=== PATIENT | female | born 1970 | race Caucasian/White ===

== ENCOUNTER → 2017-03-02 13:55 | Outpatient (CLI) | payer BC, OTHER, SELFPAY ==
--- NOTE | 2017-03-02 14:20 | MM_ITS ---
MM Dig screening mamm BI w/CAD CAD Screening ORDERING PHYSICIAN : Darnell Alexander MD PATIENT AGE: 46 years GENDER: Female COMPARISON: Previous mammograms: August 2015, February 2014, January 2013 INDICATION: 46-year-old. No hormones no new complaints noncontributory family history. TECHNIQUE: Standard CC and MLO images were obtained. R2 CAD reviewed. FINDINGS: . Generalized fatty replacement. With Low-density breast which facilitates mammography.. No dominant mass nor suspicious calcifications nor architectural distortion either breast . CAD computer review highlights no areas of concern either Bilateral follow-up one year adequate IMPRESSION: Negative stable bilateral mammogram. Low-density breast. Follow-up one year recommended BI-RADS Category: 2 Benign Finding(s) RECOMMENDED FOLLOW-UP: 1YR - 1 YEAR FOLLOW-UP (A letter has been sent to the patient regarding results of the study.)
[2017-03-02 15:53] LABS: Free T4 (Free Thyroxine) 0.94 ng/dl (0.76-1.46); Thyroid Stimulating Hormone 0.31 uIU/ml (0.358-3.740)
[2017-03-03 12:16] LABS: Triiodothyronine (T3) Free 3.1 pg/mL (2.0-4.4)
== END ==
PROVIDERS: Otolaryngology; Family Provider Nurse Practitioner Family; PCP Nurse Practitioner Family; Visit Provider Nurse Practitioner Obstetrics & Gynecology
DX: Z12.31 Encounter for screening mammogram for malignant neoplasm of breast (principal); E04.1 Nontoxic single thyroid nodule
CPT/HCPCS: 36415; 77067; 84439; 84443; 84481

== ENCOUNTER → 2017-03-09 15:11 | Outpatient (CLI) | payer BC, OTHER, SELFPAY ==
--- NOTE | 2017-03-09 15:15 | US_ITS ---
US thyroid HISTORY: ITS.REASON: THYROID GOITER ORDERING PHYSICIAN: Melania Rowell MD PATIENT AGE: 46 years COMPARISON: 03/12/2014 FINDINGS: Right lobe: 4.1 x 1.1 x 1.6 cm. 5 mm hypoechoic nodule mid aspect of the right lobe with some increased echogenicity centrally unchanged. 5 mm hypoechoic nodule inferiorly unchanged. Left lobe: 3.6 x 0.8 x 1.5 cm. 4 mm hypoechoic nodule upper pole unchanged. Isthmus: Unremarkable IMPRESSION: Overall no change bilateral hypoechoic thyroid nodules with low index of suspicion for malignancy
== END ==
PROVIDERS: Family Provider Nurse Practitioner Family; PCP Nurse Practitioner Family; Visit Provider Otolaryngology
DX: E04.9 Nontoxic goiter, unspecified (principal)
CPT/HCPCS: 76536

== ENCOUNTER → 2017-09-16 10:16 | Outpatient (CLI) | payer BC, OTHER, SELFPAY ==
--- NOTE | 2017-09-16 10:18 | US_ITS ---
US thyroid HISTORY: Enlarged thyroid gland ITS.REASON: thyroid disease ORDERING PHYSICIAN: Lorelei Gar PATIENT AGE: 47 years Comparison: 03/09/2017 FINDINGS: The right lobe is 3.8 x 1.0 x 2.4 cm. There is a 1.1 x 0.7 cm cystic nodule in the mid to lower pole on the right. Small hyperechoic focus is noted within this lesion. Lesion appears slightly larger and may actually consisted of 2 adjacent cysts were present before there was only one. There is some mural nodularity of the inferior cyst. Would consider fine-needle aspiration due to this interval change. The left lobe is 3.3 x 0.8 x 1.8 cm. There is a 4 mm cyst in the upper pole unchanged. A small cyst is present in the isthmus at 4 x 2 mm IMPRESSION: Enlarging and or new cystic lesion in the mid to lower pole the right lobe of the thyroid gland with a mural nodule. Suggest findings of aspiration with sonographic guidance for further evaluation
== END ==
PROVIDERS: Family Provider Nurse Practitioner Family; PCP Nurse Practitioner Family; Visit Provider Nurse Practitioner Family
DX: E04.9 Nontoxic goiter, unspecified (principal); E07.9 Disorder of thyroid, unspecified
CPT/HCPCS: 76536

== ENCOUNTER → 2017-09-20 09:15 | Outpatient (POV) | payer OTHER, SELFPAY | PROVIDERS: Family Provider Nurse Practitioner Family; PCP Nurse Practitioner Family; Visit Provider Otolaryngology | DX: Z00.00 Encounter for general adult medical examination without abnormal findings (principal) ==

== ENCOUNTER → 2017-09-29 09:33 | Outpatient (CLI) | payer OTHER, SELFPAY ==
--- NOTE | 2017-09-29 09:40 | US_ITS ---
FNA w guidance, US thyroid HISTORY: Complex right-sided thyroid nodule. Cystic lesion with a mural nodule ITS.REASON: THYROID NODULE ORDERING PHYSICIAN: Melania Rowell MD PATIENT AGE: 47 years COMPARISON: 09/16/2017 TECHNIQUE: Following obtaining informed consent, using aseptic technique and local anesthesia with buffered lidocaine, fine-needle aspiration was performed of the nodule of interest using sonographic guidance. 3 passes were made into the nodule with a 25-gauge needle. Specimen was given to cytology. Specifically, the FNA was directed toward the mural nodule of the cystic lesion. The patient tolerated the procedure well without evidence of immediate complications and left the ultrasound suite in stable condition. CYTOLOGY:Negative for malignancy. Abundant colloid compatible with colloid cyst IMPRESSION: Successful sonographic guided fine-needle aspiration of the right thyroid nodule showing benign findings
== END ==
PROVIDERS: Family Provider Nurse Practitioner Family; PCP Nurse Practitioner Family; Visit Provider Otolaryngology
DX: E04.9 Nontoxic goiter, unspecified (principal)
CPT/HCPCS: 10022; 76536

== ENCOUNTER → 2018-04-04 09:45 | Outpatient (CLI) | payer OTHER, SELFPAY ==
[2018-04-04 20:08] LABS: Thyroid Stimulating Hormone 1.94 uIU/ml (0.358-3.740)
[2018-04-05 15:25] LABS: Triiodothyronine (T3) Total 110 ng/dL (71-180)
== END ==
PROVIDERS: PCP Nurse Practitioner Family; Visit Provider Otolaryngology
DX: E04.9 Nontoxic goiter, unspecified (principal); E03.9 Hypothyroidism, unspecified
CPT/HCPCS: 36415; 84436; 84443; 84480

== ENCOUNTER → 2019-01-19 08:25 | Outpatient (CLI) | payer OTHER, SELFPAY ==
[2019-01-19 13:35] LABS: Basophils % 0.7 % (0.1-2.0); Eosinophils # 0.3 K/mm3 (0.0-0.4); Eosinophils % 4.4 % (0.1-12.0); Hematocrit 38.5 % (37.0-47.0); Hemoglobin 12.8 g/dL (12.2-16.2); Lymphocytes # 1.4 K/mm3 (0.7-4.5); Lymphocytes % 23.5 % (10-50); Mean Corpuscular HGB Conc 33.2 g/dL (31.8-35.4); Mean Corpuscular Hemoglobin 30.6 pg (27.0-31.2); Mean Corpuscular Volume 92.3 fl (81-99); Mean Platelet Volume 8.1 fl (7.4-10.4); Monocytes # 0.3 K/mm3 (0.1-1.0); Monocytes % 5.6 % (1.7-9.3); Neutrophils # 3.8 K/mm3 (1.8-7.8); Neutrophils % 65.8 % (37.0-80.0); Platelet Count 375 K/mm3 (142-424); Red Blood Count 4.17 M/mm3 (4.20-5.40); Red Cell Distribution Width 13.3 % (11.5-17.5); White Blood Count 5.8 K/mm3 (4.8-10.8)
[2019-01-19 14:02] LABS: Alanine Aminotransferase 15 U/L (12-78); Albumin Level 3.3 gm/dL (3.4-5.0); Albumin/Globulin Ratio 1.1 (1.1-1.8); Alkaline Phosphatase 80 U/L (46-116); Anion Gap 12.5 mEq/L (5-15); Aspartate Amino Transferase 11 U/L (15-37); Bilirubin,Total 0.3 mg/dL (0.2-1.0); Blood Urea Nitrogen 17 mg/dL (7-18); Calcium 8.7 mg/dL (8.5-10.1); Carbon Dioxide 27 mmol/L (21.0-32.0); Chloride 106 mmol/L (98-107); Chol/HDL Ratio 4.6 (1-3.5); Cholesterol 211 mg/dL (140-200); Creatinine,Serum 0.73 mg/dL (0.55-1.02); Estimated Glomerular Filt Rate 85 ml/min (>60); GFR (African American) 103 ML/MIN (>60); Globulin 2.9 gm/dl (1.3-3.2); Glucose 91 mg/dL (74-106); HDL Cholesterol 46 mg/dL (29-89); LDL Cholesterol 136 mg/dL (0-130); Potassium 3.5 mmoL/L (3.5-5.1); Sodium 142 mmol/L (136-145); Total Protein,Serum 6.2 gm/dL (6.4-8.2); Triglycerides 144 mg/dL (30-200); VLDL Cholesterol 29 mg/dL (0-40)
== END ==
PROVIDERS: PCP Nurse Practitioner Family; Visit Provider Nurse Practitioner Family
DX: R53.83 Other fatigue (principal); I10 Essential (primary) hypertension
CPT/HCPCS: 36415; 80053; 80061; 84443; 85025

== ENCOUNTER → 2019-01-30 10:35 | Outpatient (CLI) | payer OTHER, SELFPAY ==
--- NOTE | 2019-01-30 10:38 | MM_ITS ---
PROCEDURE: MM DIG SCREENING MAMM BI W/CAD CLINICAL INDICATION: SCREENING There is no personal or family history of breast cancer. COMPARISON: [facility] DIG MAMM-SCREEN LUCILA from 03/01/2014 [facility] DIG MAMM-SCREEN LUCILA from 08/25/2015 [facility] MM Dig screening mamm BI w/CAD from 03/02/2017 TECHNIQUE: Standard CC and MLO images were obtained. R2 CAD reviewed. FINDINGS: The breasts are composed almost entirely of fat with minimal scattered fibroglandular densities in each breast. There is no suspicious lesion in either breast and no suspicious microcalcifications. There are few benign-appearing microcalcifications in each breast. There are fatty replaced nodes in both axilla. IMPRESSION: Fatty type breast parenchyma with no suspicious lesions seen BI-RAD Category: 2 Benign Finding(s) FOLLOW-UP: 1YR 1 Year Follow-up (A letter has been sent to the patient regarding results of the study.) Dictated by: Dr. Tobin Head MD 01/31/2019 20:[address] Tobin Head MD in [place] 01/31/2019 20:38
== END ==
PROVIDERS: PCP Nurse Practitioner Family; Visit Provider Nurse Practitioner Family
DX: Z12.31 Encounter for screening mammogram for malignant neoplasm of breast (principal)
CPT/HCPCS: 77067

== ENCOUNTER → 2019-08-08 08:06 | Outpatient (CLI) | payer OTHER, SELFPAY ==
[2019-08-08 08:52] LABS: Basophils % 0.8 % (0.1-2.0); Eosinophils # 0.1 K/mm3 (0.0-0.4); Eosinophils % 2.9 % (0.1-12.0); Hematocrit 39.8 % (37.0-47.0); Hemoglobin 13.3 g/dL (12.2-16.2); Lymphocytes # 1.7 K/mm3 (0.7-4.5); Lymphocytes % 35.1 % (10-50); Mean Corpuscular HGB Conc 33.4 g/dL (31.8-35.4); Mean Corpuscular Hemoglobin 30.6 pg (27.0-31.2); Mean Corpuscular Volume 91.5 fl (81-99); Mean Platelet Volume 7.2 fl (7.4-10.4); Monocytes # 0.2 K/mm3 (0.1-1.0); Neutrophils # 2.7 K/mm3 (1.8-7.8); Neutrophils % 56.3 % (37.0-80.0); Platelet Count 301 K/mm3 (142-424); Red Blood Count 4.35 M/mm3 (4.20-5.40); Red Cell Distribution Width 13.9 % (11.5-17.5); White Blood Count 4.8 K/mm3 (4.8-10.8)
[2019-08-08 09:17] LABS: Alanine Aminotransferase 14 U/L (12-78); Albumin/Globulin Ratio 1.4 (1.1-1.8); Alkaline Phosphatase 91 U/L (38-126); Anion Gap 8.7 mEq/L (5-15); Aspartate Amino Transferase 21 U/L (14-36); Bilirubin,Total 0.5 mg/dl (0.2-1.3); Blood Urea Nitrogen 18 mg/dl (7-17); Calcium 9.5 mg/dl (8.4-10.2); Carbon Dioxide 28 mmol/L (22.0-30.0); Chloride 103 mmol/L (98-107); Chol/HDL Ratio 3.4 (1-3.5); Cholesterol 210 mg/dl (140-200); Estimated Glomerular Filt Rate 77 ml/min (>60); GFR (African American) 93 ML/MIN (>60); Globulin 2.9 g/dL (1.3-3.2); Glucose 109 mg/dl (74-100); HDL Cholesterol 61 mg/dl (40-60); Potassium 3.7 mmoL/L (3.5-5.1); Sodium 136 mmol/L (136-145); Total Protein,Serum 6.9 g/dl (6.3-8.2); Triglycerides 131 mg/dl (30-150); VLDL Cholesterol 26 mg/dL (0-40)
[2019-08-08 09:28] LABS: Direct LDL Cholesterol 115.29 mg/dL (100-129)
[2019-08-08 09:35] LABS: 25-OH Vitamin D, Total 31.6 ng/mL (30-100)
[2019-08-08 09:36] LABS: T4 (Thyroxine) 8.9 ug/dl (5.53-11.0)
[2019-08-08 09:49] LABS: Thyroid Stimulating Hormone 4.09 uIU/mL (0.465-4.68)
== END ==
PROVIDERS: Visit Provider Nurse Practitioner Family
DX: E07.9 Disorder of thyroid, unspecified (principal); Z79.899 Other long term (current) drug therapy
CPT/HCPCS: 36415; 80053; 80061; 82306; 84436; 84443; 85025

== ENCOUNTER 2020-01-20 14:43 | Emergency (ER) | payer OTHER, SELFPAY ==
[2020-01-20 14:50] VITALS: BP 133/83; PULSE 79; RESP 20; TEMP 36.3; O2SAT 99; BMI 35.2
--- NOTE | 2020-01-20 15:47 | HMH.EDUTC ---
[facility] Clinical Impression: Otitis media Qualifiers: Otitis media type: suppurative Chronicity: acute Laterality: right Recurrence: non-recurrent Spontaneous tympanic membrane rupture: without spontaneous rupture Qualified Code(s): H66.001 - Acute suppurative otitis media without spontaneous rupture of ear drum, right ear Disposition: Home, Self-Care Condition on Discharge: Good Instructions: Middle Ear Infection Additional Instructions: Start antibiotic as soon as possible and be sure to take as ordered for full length of time even though he should start feeling better in 24-48 hours. Tylenol or Motrin as needed for pain or fever Encourage fluids, water, Gatorade, Powerade, Pedialyte if /toddler/child Warm compresses often helps when placed over ear Return immediately for new or worsening symptoms no noticeable improvement in 48-72 hours and in 10-14 days to ensure the ears are return to baseline. Follow-up with primary care Prescriptions: cephALEXin [Keflex 500mg Cap] 500 mg PO BID 10 Days #20 cap Transmission Status: Pending to [id number] predniSONE [Prednisone 20mg Tab] 20 mg PO BID #10 tab Transmission Status: Pending to [id number] Referrals: Damir Bowling APRN [Primary Care Provider] - Time of Disposition: 15:52 Medical Decision Making - Raji Inquiry Pt receiving controlled substance: No Vital Signs: 01/20/20 14:50 Temperature 97.3 F L Temperature Source Oral Pulse Rate [Right Brachial] 79 Respiratory Rate 20 Blood Pressure [Right Arm] 133/83 Blood Pressure Mean [Right Arm] 99 Blood Pressure Source [Right Arm] Automatic Cuff Blood Pressure Position [Right Arm] Sitting 02 Sat by Pulse Oximetry 99 Oxygen Delivery Method Room Air [facility] [place] [facility] [place] - General Chief complaint: [facility] Stated complaint: right ear pain Time Seen by Provider: 01/20/20 15:47 Mode of Arrival: Ambulatory Source of Information: Patient Limitations: No Limitations Description of Symptoms (Recalled from Triage Doc. by RN): PATIENT C/O RIGHT EAR PAIN HEENT Symptoms (Recalled from RN notes): No Resp Symptoms (Recalled from RN notes): No Skin Symptoms (Recalled from RN notes): No MS Symptoms (Recalled from RN notes): No Functional Status (Recalled from RN notes): WNL - History of Present Illness Provider Complaint: 49 yr old female presnets for rt ear pain - Related Data Previous Rx's Medication Instructions Recorded fluticasone propionate 50 See Rx Instructions .ROUTE 09/17/19 mcg/actuation nasal .COMPLEX #10 milliliter spray,suspension alprazolam 0.25 mg tablet 0.25 mg PO BID PRN #30 tab 10/04/19 cephalexin 500 mg capsule 500 mg PO Q12H 10 Days #20 cap 10/12/19 prednisone 20 mg tablet 20 mg PO BID #10 tab 10/12/19 acyclovir 400 mg tablet 400 mg PO QID #30 tab 11/03/19 cetirizine 10 mg tablet See Rx Instructions .ROUTE 12/14/19 .COMPLEX #90 tab lisinopril 20 See Rx Instructions .ROUTE 12/14/19 mg-hydrochlorothiazide 12.5 mg .COMPLEX #90 tab tablet pravastatin 20 mg tablet 20 mg PO DAILY #90 tab 12/28/19 pantoprazole 40 mg tablet,delayed See Rx Instructions .ROUTE 12/31/19 release .COMPLEX #90 each fluconazole 150 mg tablet See Rx Instructions .ROUTE 01/02/20 .COMPLEX #1 tablet levothyroxine 25 mcg tablet See Rx Instructions .ROUTE 01/07/20 .COMPLEX #90 tab cephALEXin [Keflex 500mg Cap] 500 mg PO BID 10 Days #20 cap 01/20/20 predniSONE [Prednisone 20mg 20 mg PO BID #10 tab 01/20/20 Tab] Allergies Allergy/AdvReac Type Severity Reaction Status Date / Time adhesive [ADHESIVE] Allergy Unknown Verified 10/04/19 10:14 cyclobenzaprine Allergy Verified 10/04/19 10:14 [From Flexeril] - Worker's Comp Is this a Worker's Comp case?: No [facility] History - Hepatitis A Screen Drug use history?: No High risk sexual behaviors?: No History of sexually transmitted infection?: No Currently employed?: No Childcare worker?: No Do you have in
[2020-01-20 15:55] VITALS: BP 133/83; PULSE 79; RESP 20; TEMP 36.3; O2SAT 99
== END 2020-01-20 16:00 | disposition home or self-care (01) ==
PROVIDERS: Emergency Provider Nurse Practitioner Family; PCP Nurse Practitioner Family
DX: H66.001 Acute suppurative otitis media without spontaneous rupture of ear drum, right ear (principal); E78.5 Hyperlipidemia, unspecified; I10 Essential (primary) hypertension; K21.9 Gastro-esophageal reflux disease without esophagitis; F41.9 Anxiety disorder, unspecified; Z91.048 Other nonmedicinal substance allergy status; Z79.899 Other long term (current) drug therapy
CPT/HCPCS: 99201

== ENCOUNTER → 2020-02-04 07:47 | Outpatient (CLI) | payer OTHER, SELFPAY ==
--- NOTE | 2020-02-04 07:48 | MM_ITS ---
PROCEDURE: MM DIG SCREENING MAMM BI W/CAD Digital Breast Tomosynthesis Included CLINICAL INDICATION: screening There is no personal or family history of breast cancer. COMPARISON: MG [facility] DIG MAMM-SCREEN LUCILA from 08/25/2015 [facility] MM Dig screening mamm BI w/CAD from 03/02/2017 MG MM DIG SCREENING MAMM BI W/CAD from 01/30/2019 TECHNIQUE: Standard CC and MLO images and 3D Tomosynthesis was obtained. R2 CAD reviewed. FINDINGS: The breasts are composed primarily of with minimal scattered fibroglandular densities in each breast. There few scattered benign-appearing microcalcifications in each breast. There are fatty replaced nodes in both axilla. There is no suspicious lesion in either breast and no suspicious microcalcifications. IMPRESSION: Fatty type breast parenchyma with no suspicious lesions seen BI-RAD Category: 2 Benign Finding(s) FOLLOW-UP: 1YR 1 Year Follow-up (A letter has been sent to the patient regarding results of the study.) Dictated by: Dr. Tobin Head MD 02/06/2020 09:04 Dr. Tobin Head MD in [place] 02/06/2020 09:04
== END ==
PROVIDERS: PCP Nurse Practitioner Family; Visit Provider Nurse Practitioner Family
DX: Z12.31 Encounter for screening mammogram for malignant neoplasm of breast (principal)
CPT/HCPCS: 77063; 77067

== ENCOUNTER 2020-02-11 18:53 | Emergency (ER) | payer OTHER, SELFPAY ==
--- NOTE | 2020-02-11 18:50 | ECG_ITS ---
APPROVED REPORT Exam: Resting ECG HR:87 bpm ECG Measurements Heart Rate 87 AXES TX 132 P 65 QRSd 86 QRS 12 QT 380 T 52 QTc 457 Conclusion Normal sinus rhythm Low voltage QRS Borderline ECG Electronically signed by : Ezekiel Kaiser, 02/12/2020 19:54:56
[2020-02-11 18:53] VITALS: BP 133/90; PULSE 79; RESP 16; TEMP 36.8; O2SAT 98; BMI 38.2
--- NOTE | 2020-02-11 19:07 | XR_ITS ---
PROCEDURE: XR CHEST 2V CLINICAL HISTORY: stomach soreness COMPARISON: CR CXR1 CHEST-PORTABLE from 04/28/2012 FINDINGS: The cardiomediastinal silhouette and pulmonary vascularity are within normal limits. There is mild persistent elevation right hemidiaphragm unchanged from the previous chest film 04/28/2012. The lungs are clear without infiltrates, suspicious nodules, or pleural effusions. No acute bony abnormalities. IMPRESSION: No acute findings. Dictated by: Dr. Tobin Head MD 02/12/2020 10:45 Dr. Tobin Head MD in [place] 02/12/2020 10:45
--- NOTE | 2020-02-11 19:13 | CT_ITS ---
Procedure: CT ABDOMEN PELVIS W CON Referring Doctor: Christian Martinez Patient Age:49Y CLINICAL INDICATION: diverticulitis? Abdominal pain. Diarrhea. History of diverticulosis. COMPARISON: CR XR CHEST 2V from 02/11/2020 TECHNIQUE: 75 cc Isovue 370 Axial images obtained with sagittal and coronal reformats. All CT scans at the facility use one or more dose reduction, viz: automated exposure control, ma/kV adjustment per patient size (including targeted exams where dose is matched to indication, i.e. head), or iterative reconstruction technique. FINDINGS: Lower thorax: Lung bases clear, small calcified granuloma anterior RML but minimal atelectasis posterior right lung base but ABDOMEN: Liver: No significant masses. No biliary dilatation. Tiny 1 cm cyst right lobe. Gallbladder: Distended gallbladder measuring to 9.5 cm in length small noncalcified gallstone versus polyp along anterior wall, 7.5 mm size but axial image 46. The common duct appears normal caliber-not dilated. Pancreas: No masses or peripancreatic fluid collections. Spleen: unremarkable Adrenals: unremarkable Kidneys/ureters: unremarkable but normal enhancement but no obstruction or calculi. Uterus remains.. Of left ovary is more evident the right and contains a small 16 generous left fallopian tube. Mm cyst Bladder: Nondistended. No obvious stones or masses. Appendix: Unremarkable. No distention or periappendiceal phlegmonous change. -GI tract --------- Stomach: Mild diffuse wall thickening appearance the most likely reflects lack of distension Small bowel: Slight increased fluid throughout small bowel but no small bowel dilatation or obstruction. Terminal ileum appears normal. Appendix is difficult to visualize but what I believe is appendix is very thin with no evidence of appendicitis . LARGE BOWEL. Diverticulosis most extensive at sigmoid colon but with numerous diverticuli throughout the left colon at and extending into the transverse colon as well. The of there are few diverticula which demonstrate upper normal wall thickness but however see no no definitive acute diverticulitis but there is some questionable slight wispy changes about the proximal most sigmoid colon but not convincing for diverticulitis. Peritoneum: No abnormal fluid collections. No obvious inflammatory changes. No free air. A small fat containing umbilical hernia the Lymph nodes: No enlarged lymph nodes apparent. Vasculature: No the unremarkable Bones: There are 11 full ribs with the 12th rib rudimentary during the transitional vertebra at thoracolumbar junction. Using this numbering of vertebral bodies of note prominent 8 mm, prominent grade 2 listhesis of L4 on L5, with marked degenerative disc space narrowing and severe facet arthropathy/hypertrophy a contributing. No pars defect identified. These features combine to yield prominent central canal stenosis and prominent bilateral recess/foraminal stenosis at L4/5 level. There is also foraminal stenosis bilaterally at L5 most evident to the right, but the IMPRESSION: 1.. Gallbladder is dilated/distended, with an adherent stone or polyp along the anterior wall.. Recommend gallbladder ultrasound to further evaluate Common duct normal diameter; no intrahepatic biliary ductal dilatation. 2. Colonic diverticulosis most pronounced throughout the sigmoid and left colon.. No definitive acute diverticulitis (Several diverticuli with upper normal wall thickness as well question mild haziness in pericolic fat in some areas, but overall no convincing/definitive acute diverticulitis. If symptoms at left lower quadrant should progress consider follow-up study). Also no liquid stool evident cur
[2020-02-11 19:20] LABS: Basophils # 0.1 K/mm3 (0-0.2); Basophils % 0.4 % (0.1-2.0); Chloride 103 mmol/L (98-107); Eosinophils # 0.2 K/mm3 (0.0-0.4); Eosinophils % 1.2 % (0.1-12.0); Hematocrit 42.8 % (37.0-47.0); Hemoglobin 14.2 g/dL (12.2-16.2); Lymphocytes # 1.8 K/mm3 (0.7-4.5); Lymphocytes % 14.5 % (10-50); Mean Corpuscular HGB Conc 33.1 g/dL (31.8-35.4); Mean Corpuscular Volume 90.7 fl (81-99); Mean Platelet Volume 7.1 fl (7.4-10.4); Monocytes # 0.7 K/mm3 (0.1-1.0); Monocytes % 5.5 % (1.7-9.3); Neutrophils # 9.7 K/mm3 (1.8-7.8); Neutrophils % 78.3 % (37.0-80.0); Platelet Count 325 K/mm3 (142-424); Red Blood Count 4.72 M/mm3 (4.20-5.40); Red Cell Distribution Width 14.6 % (11.5-17.5); White Blood Count 12.4 K/mm3 (4.8-10.8)
[2020-02-11 19:21] LABS: Potassium 3.5 mmoL/L (3.5-5.1); Sodium 137 mmol/L (136-145)
[2020-02-11 19:23] LABS: Alanine Aminotransferase 15 U/L (12-78); Amylase 47 U/L (30-110); Anion Gap 9.5 mEq/L (5-15); Aspartate Amino Transferase 21 U/L (14-36); Bilirubin,Total 0.4 mg/dl (0.2-1.3); Blood Urea Nitrogen 16 mg/dl (7-17); Carbon Dioxide 28 mmol/L (22.0-30.0); Creatinine Clearance Estimated 161 mL/min (50-200); Estimated Glomerular Filt Rate 107 ml/min (>60); GFR (African American) 129 ML/MIN (>60)
[2020-02-11 19:24] LABS: Albumin Level 4.2 g/dl (3.5-5.0); Albumin/Globulin Ratio 1.3 (1.1-1.8); Alkaline Phosphatase 104 U/L (38-126); Calcium 9.6 mg/dl (8.4-10.2); Globulin 3.3 g/dL (1.3-3.2); Glucose 111 mg/dl (74-100); Lipase 47 U/L (23-300); Total Protein,Serum 7.5 g/dl (6.3-8.2)
[2020-02-11 19:30] VITALS: BP 129/84; PULSE 72; RESP 17; O2SAT 99
--- NOTE | 2020-02-11 19:35 | PC.NURSE ---
pt to RAD
[2020-02-11 19:38] LABS: Troponin I < 0.01 ng/ml (0.00-0.034)
--- NOTE | 2020-02-11 19:48 | PC.NURSE ---
pt back form RAD
[2020-02-11 20:00] VITALS: BP 121/83; PULSE 67; RESP 16; O2SAT 97
--- NOTE | 2020-02-11 20:20 | PC.NURSE ---
speaking with Dr. Lee
[2020-02-11 20:24] LABS: Microscopic, Urine URINE MICROSCOPIC (MICROSCOPIC)
--- NOTE | 2020-02-11 20:29 | HMH.EDABDPAI ---
ED Disposition Clinical Impression: Cholelithiases Qualifiers: Cholelithiasis location: gallbladder Cholecystitis presence: without cholecystitis Biliary obstruction: without biliary obstruction Qualified Code(s): K80.20 - Calculus of gallbladder without cholecystitis without obstruction Disposition: Home, Self-Care Condition on Discharge: Good Instructions: DI for Acute Abdominal Pain Additional Instructions: Call Dr. Do with general surgery tomorrow morning at his clinic to schedule an appointment for follow-up. Return to the ED for any new or worsening symptoms including persistent vomiting or fever. Referrals: Bolivar Isaac MD [Primary Care Provider] - Time of Disposition: 20:46 - Critical Care Critical Care Time: No Attestation: On 02/11/20, the high probability of a clinically significant, sudden or life threatening deterioration of the following system(s) required my full and direct attention, intervention and personal management. The time I documented below is in addition to time spent performing reported procedures but includes the following listed in this critical care notation. Medical Decision Making - Medical Records Medical records reviewed: Yes: I reviewed the patient's medical records. - Raji Inquiry Pt receiving controlled substance: No Vital Signs: 02/11/20 18:53 Temperature 98.2 F Temperature Source Oral Pulse Rate [Right] 79 Respiratory Rate 16 Blood Pressure [Right Arm] 133/90 Blood Pressure Mean [Right Arm] 104 Blood Pressure Source [Right Arm] Automatic Cuff Blood Pressure Position [Right Arm] Sitting 02 Sat by Pulse Oximetry 98 Oxygen Delivery Method Room Air - Lab Data Lab Results 02/11/20 18:55: WBC 12.4 H, RBC 4.72, Hgb 14.2, Hct 42.8, MCV 90.7, MCH 30.0, MCHC 33.1, RDW 14.6, Plt Count 325, MPV 7.1 L, Neut % (Auto) 78.3, Lymph % (Auto) 14.5, [place] % (Auto) 5.5, Eos % (Auto) 1.2, Baso % (Auto) 0.4, Neut # (Auto) 9.7 H, Lymph # (Auto) 1.8, [place] # (Auto) 0.7, Eos # (Auto) 0.2, Baso # (Auto) 0.1 02/11/20 18:55: Sodium 137, Potassium 3.5, Chloride 103, Carbon Dioxide 28, Anion Gap 9.5, BUN 16, Creatinine 0.60, Estimated Creat Clear 161, Estimated GFR 107, Est GFR ( Amer) 129, Glucose 111 H, Calcium 9.6, Total Bilirubin 0.4, AST 21, ALT 15, Alkaline Phosphatase 104, Troponin I < 0.01, Total Protein 7.5, Albumin 4.2, Globulin 3.3 H, Albumin/Globulin Ratio 1.3, Amylase 47, Lipase 47 02/11/20 18:55: Urine Color Yellow, Urine Appearance Clear, Urine pH 7.0, Ur Specific [place] 1.020, Urine Protein Negative, Urine Glucose (UA) Negative, Urine Ketones Negative, Urine Blood Negative, Urine Nitrate Negative, Urine Bilirubin Negative, Urine Urobilinogen 0.2, Ur Leukocyte Esterase Negative, Urine WBC Occasional, Ur Squamous Epith Cells 20-50, Uric Acid Crystals 1+ Result diagrams: 02/11/20 18:55 02/11/20 18:55 Orders (Tests/Meds): ED MEDICATIONS Generic Name Dose Route Start Last Admin Trade Name Freq PRN Reason Stop Dose Admin Sodium Chloride 1,000 mls @ 999 mls/hr 02/11/20 19:30 02/11/20 19:54 Sod Chlor 0.9% 1000ml Bag IV 02/11/20 20:30 999 mls/hr .Q1H1M ADI Administration Discontinued Medications Generic Name Dose Route Start Last Admin Trade Name Freq PRN Reason Stop Dose Admin Belladonna Alkaloids 60 ml 02/11/20 19:16 02/11/20 19:56 Gi Cocktail 60ml Udc PO 02/11/20 19:17 60 ml ONCE ONE Administration Iopamidol 75 ml 02/11/20 19:53 02/11/20 19:56 Iopamidol-370 (76%);100ml Bottle IV 02/11/20 19:54 75 ml ONCE ONE Administration Morphine Sulfate 4 mg 02/11/20 19:16 02/11/20 19:56 Morphine 4mg/Ml Syringe IV 02/11/20 19:17 4 mg ONCE ONE Administration Ondansetron HCl 4 mg 02/11/20 19:15 02/11/20 19:56 Ondansetron 4mg/2ml Vial IV 02/11/20 19:16 4 mg ONCE ONE Administration Sodium Chloride 10 ml 02/11/20 19:53 02/11/20 19:56 Sodium Chloride 0.9% 10ml Syr (Rad Only) IV 02/11/20 19:54 10 ml ONCE ONE A
[2020-02-11 20:30] VITALS: BP 123/78; PULSE 61; RESP 17; O2SAT 98
[2020-02-11 20:38] LABS: Appearance,Urine CLEAR (Clear); Bilirubin,Urine Negative (Negative); Blood, Urine Negative (Negative); Color,Urine YELLOW (Yellow); Glucose,Urine (UA) Negative (Negative); Ketones,Urine Negative (Negative); Leukocyte Esterase,Urine Negative (Negative); Nitrate,Urine Negative (Negative); Protein,Urine Negative (Negative); Urobilinogen,Urine 0.2 EU/dl (0.2)
[2020-02-11 20:42] LABS: Squamous Epithelial Cell,Urine 20-50 #/hpf (0-5); Uric Acid Crystals,Urine 1+ /lpf; WBC,Urine Occasional #/hpf (0-3)
[2020-02-11 21:00] VITALS: BP 117/76; PULSE 70; RESP 16; O2SAT 100
[2020-02-11 21:45] VITALS: BP 117/76; PULSE 71; RESP 15; TEMP 36.6; O2SAT 99
== END 2020-02-11 21:25 | disposition home or self-care (01) ==
PROVIDERS: Emergency Provider Student in an Organized Health Care Education/Training Program; PCP Emergency Medicine
DX: K80.20 Calculus of gallbladder without cholecystitis without obstruction (principal); F41.9 Anxiety disorder, unspecified; K21.9 Gastro-esophageal reflux disease without esophagitis; I10 Essential (primary) hypertension; Z79.899 Other long term (current) drug therapy
CPT/HCPCS: 71046; 74177; 80053; 81001; 82150; 83690; 84484; 85025; 93005; 96365; 96375; 99284; J2405; Q9967

== ENCOUNTER → 2020-02-16 09:36 | Outpatient (CLI) | payer OTHER, SELFPAY ==
[2020-02-16 10:27] LABS: Urine Pregnancy, HCG Qual. Negative (Negative)
[2020-02-16 11:30] LABS: Coronavirus 19 IgG Antibody Negative (Negative); Coronavirus 19 IgM Antibody Negative (Negative)
== END ==
PROVIDERS: Visit Provider Surgery
DX: Z01.818 Encounter for other preprocedural examination (principal); Z11.52 Encounter for screening for COVID-19; K80.20 Calculus of gallbladder without cholecystitis without obstruction
CPT/HCPCS: 36415; 81025; 86328

== ENCOUNTER 2020-02-18 08:55 | Day surgery (SDC) | payer OTHER, SELFPAY ==
[2020-02-13 13:57] VITALS: BMI 38.0
[2020-02-18] VITALS (15 sets, daily range): BP systolic 104–127; BP diastolic 45–76; PULSE 47–62; RESP 12–28; TEMP 36.3–43; O2SAT 91–98
--- NOTE | 2020-02-18 13:18 | HMH.OPNOTE ---
Date of procedure: 02/18/20 Pre-op Diagnosis:: Chronic calculus cholecystitis Post-op Diagnosis:: Acute and chronic calculus cholecystitis Procedure performed:: Laparoscopic cholecystectomy Surgeon:: Kleber Lee MD LOFT WORKER PILE DRIVING:: Ezekiel Alejandro Anesthesia: GETRabia Estimated blood loss (mL): 25 Operative findings:: Severe pericholecystic fat stranding Significant wall thickening with focal weeping Patchy areas of early ischemic-type changes Complex soft and hard stones within gallbladder with focal areas of purulence Operative note:: After informed consent was obtained, the patient was taken to the operating room and placed in the supine position. General anesthesia was induced and the abdomen was prepped and draped in a sterile fashion. After infiltration with local anesthetic an infraumbilical incision was made. A Veress needle was placed in position. The abdomen was insufflated. A 5 mm optical trocar was placed in position. Under direct visualization, a 12 mm trocar was placed in the subxiphoid position and 2 additional 5 mm trocars were placed in the right upper quadrant. The gallbladder was elevated up and over the liver margin. Significant gallbladder wall thickening and pericholecystic fat stranding noted. Patchy areas of early serosal necrosis were noted. Active weeping of the serosal margin also noted throughout the midportion of the gallbladder. The tissue around the cystic duct was carefully dissected. 3 clips were placed proximally and the duct was transected with harmonic kim. 2 clips were placed on the cystic artery and it was transected in a similar manner. Harmonic kim were then utilized to dissect the gallbladder away from the liver margin. The gallbladder was placed in a retrieval bag and removed through the subxiphoid trocar site. It should be noted that the subxiphoid trocar site was extended along the left and right lateral margins to allow for removal of the gallbladder. The right upper quadrant was thoroughly irrigated. No active bleeding or bile leak was noted. Fascia at the subxiphoid trocar site was reapproximated utilizing 0 Ethibond. The remaining trocars were removed. All wounds were irrigated and skin was closed with 4-0 Monocryl in an interrupted/mattress fashion. Steri-Strips were applied. The patient's anesthetic agents were reversed and extubation was completed prior to transfer to recovery in stable condition. Condition: stable Disposition: PACU Specimens:: Gallbladder and contents Complications:: No immediate
--- NOTE | 2020-02-18 13:26 | P.PN_ITS ---
[facility] Anesthesia Checklist - Patient Identification Patient Identification: Arm Band, Verbal (Name & ) - Structural Data Admitted From: Home Planned Operative Procedure/s: lap choly Consent for Planned Operative Procedure(s) Verified: Yes Verified Documents: History and Physical - NPO Status Verified Time NPO: 00:00 - Chart Verification Results Verified: CBC, BMP - Additional verifications Patient : No Anesthesia Reactions: No Hx Blood Transfusions: No Blood Transfusion Reaction: No Cephalosporin Allergy: No Previous Colonoscopy: Yes - Cardiovascular Assessment Heart Sounds: S1 & S2 Pulse Strength: Baseline Pulse Rhythm: Regular Peripheral Edema: No - Airway Assessment C-Spine Mobility Assessed: Yes TMJ Mobility Assessed: Yes Dentition: Partials - Neurological Assessment Level of Consciousness: Awake, Alert, Appropriate Hx Seizures: No Numbness or tingling in extremities: No - Anesthesia Plan Anesthesia Risk discussed: Yes Anesthesia Plan: Verified ASA Class: III Anesthesia Type: General [facility] History I have reviewed the patient's past medical history: Yes Medical History: Reports:: Anxiety, Gastroesophageal Reflux Disease(GERD), Hypertension Denies:: Cancer, Diabetes Mellitus Type 1, Diabetes Mellitus Type 2, Internal Pacemaker, MRSA, Seizures *Have you ever received a pneumonia vaccine?: No *Have you received a flu vaccine this season?: No Other Medical History: Denies: Blood Transfusion Reaction Anesthesia experience/problems:: none Other Surgeries: Yes: Other. No: Pacemaker Amputation: No Fractures: No - *Social History Last grade of school completed: Advanced degree Smoking Status: Never smoker Alcohol Intake: never Substance Use Type: denies use *Occupational Status:: employed Housing: house Household Members: spouse *Travel in the last 8 weeks: None - Psychiatric History Pschychiatric History:: Reports:: Anxiety Family Hx:: Diabetes, Hypertension
[2020-02-19 09:24] VITALS: BP 121/69; PULSE 52; TEMP 36.6
--- NOTE | 2020-02-19 09:24 | P.PN_ITS ---
[facility] Anesthesia Record Part II Discharge Time: 13:53 Destination: [facility] PACU nurse assessment reviewed?: Yes Patient Condition:: Good Anesthesia Complications:: None Swallowing reflex intact?: Yes Cyanosis?: No Blood Pressure: 121/69 Pulse Rate: 52 Temperature: 97.8 F Mental Status: Alert & Oriented Pain level:: 3 Nausea and/or vomitting:: None Intake, IV Amount: 1,500
== END 2020-02-18 15:37 | disposition home or self-care (01) ==
LOC: OR 08:55
PROVIDERS: PCP Emergency Medicine; Visit Provider Surgery
PROC: 0FT44ZZ Resection of Gallbladder, Percutaneous Endoscopic Approach (ICD-10-PCS; CPT 47562; principal; 2020-02-18 10:30)
DX: K80.12 Calculus of gallbladder with acute and chronic cholecystitis without obstruction (principal); K82.8 Other specified diseases of gallbladder; F41.9 Anxiety disorder, unspecified; K21.9 Gastro-esophageal reflux disease without esophagitis; I10 Essential (primary) hypertension; Z83.3 Family history of diabetes mellitus; Z82.49 Family history of ischemic heart disease and other diseases of the circulatory system; Z88.8 Allergy status to other drugs, medicaments and biological substances; Z91.048 Other nonmedicinal substance allergy status; Z79.899 Other long term (current) drug therapy
CPT/HCPCS: 47562; 96374; J2405; J2710

== ENCOUNTER 2020-05-17 13:10 | Emergency (ER) | payer OTHER, SELFPAY ==
[2020-05-17 14:06] VITALS: BP 128/89; PULSE 85; RESP 19; TEMP 37; O2SAT 98; BMI 35.6
--- NOTE | 2020-05-17 14:52 | HMH.EDUTC ---
[facility] [place] Disposition Clinical Impression: Acute maxillary sinusitis Qualifiers: Recurrence: non-recurrent Qualified Code(s): J01.00 - Acute maxillary sinusitis, unspecified Disposition: Home, Self-Care Condition on Discharge: Good Instructions: Sinusitis, DI for Sinusitis Additional Instructions: Start antibiotic patient to take as ordered for a full length of time even if you feel better. Sinus infections do not get better overnight. It may take 2-3 days to notice much improvement so be sure to use conservative measures as discussed for symptoms. Flonase 1 spray each nostril daily to help with nasal congestion, sinus and ear pressure/information Increase fluids Humidifier/vaporizer as needed Tylenol and ibuprofen as needed for fever or pain. If symptoms do not improve or get worse return or be seen in the ER Follow-up with primary care this week Prescriptions: Fluticasone Propionate [Flonase 50mcg nasal spray 16gm] 1 spr NS DAILY 14 Days #1 bottle Transmission Status: Pending to [facility] predniSONE [Prednisone 20mg Tab] 20 mg PO BID #10 tab Transmission Status: Pending to [facility] Azithromycin [Zithromax 250mg tab] 250 mg PO DIRECTED #6 tab Transmission Status: Pending to [facility] Referrals: Damir Bowling APRN [Primary Care Provider] - Time of Disposition: 15:02 Medical Decision Making - Raji Inquiry Pt receiving controlled substance: No Vital Signs: 05/17/20 14:06 Temperature 98.6 F Temperature Source Oral Pulse Rate [Right] 85 Respiratory Rate 19 Blood Pressure [Right Arm] 128/89 Blood Pressure Mean [Right Arm] 102 02 Sat by Pulse Oximetry 98 [facility] [place] HPI - General Chief complaint: Urgent Treatment Center Stated complaint: sinus drainage Time Seen by Provider: 05/17/20 14:55 Mode of Arrival: Ambulatory Source of Information: Patient Limitations: No Limitations Description of Symptoms (Recalled from Triage Doc. by RN): pt c/o sinus congestion and drainage for three days. HEENT Symptoms (Recalled from RN notes): Yes (sinus pressure) Resp Symptoms (Recalled from RN notes): No Skin Symptoms (Recalled from RN notes): No MS Symptoms (Recalled from RN notes): No Functional Status (Recalled from RN notes): na - History of Present Illness Provider Complaint: 50 yr old female presnets for sinus congestion,sinus pressure, dark nasal drainage,sore throat and headache for 2 days - Related Data Previous Rx's Medication Instructions Recorded Ondansetron [Zofran 4mg ODT] 4 mg PO TIDP PRN 3 Days #3 tab 02/11/20 alprazolam 0.25 mg tablet 0.25 mg PO BID PRN #30 tab 02/27/20 cetirizine 10 mg tablet See Rx Instructions .ROUTE 02/27/20 .COMPLEX #30 tab fluticasone propionate 50 See Rx Instructions .ROUTE 02/27/20 mcg/actuation nasal .COMPLEX #16 g spray,suspension levothyroxine 25 mcg tablet See Rx Instructions .ROUTE 02/27/20 .COMPLEX #90 tab lisinopril 20 See Rx Instructions .ROUTE 02/27/20 mg-hydrochlorothiazide 12.5 mg .COMPLEX #90 tab tablet pantoprazole 40 mg tablet,delayed See Rx Instructions .ROUTE 02/27/20 release .COMPLEX #90 tab pravastatin 20 mg tablet 20 mg PO DAILY #90 tab 02/27/20 acyclovir 400 mg tablet See Rx Instructions .ROUTE 04/07/20 .COMPLEX #30 tab Azithromycin [Zithromax 250mg 250 mg PO DIRECTED #6 tab 05/17/20 tab] Fluticasone Propionate [Flonase 1 spr NS DAILY 14 Days #1 bottle 05/17/20 50mcg nasal spray 16gm] predniSONE [Prednisone 20mg 20 mg PO BID #10 tab 05/17/20 Tab] Allergies Allergy/AdvReac Type Severity Reaction Status Date / Time adhesive [ADHESIVE] Allergy Unknown Verified 02/27/20 14:59 cyclobenzaprine Allergy Verified 02/27/20 14:59 [From Flexeril] - Worker's Comp Is this a Worker's Comp case?: No [facility] History - Hepatitis A Screen Drug use history?: No High risk sexual behaviors?: No History of sexually transmitted infection?: No Currently employed?: No C
[2020-05-17 15:09] VITALS: BP 118/82; PULSE 84; RESP 14; TEMP 36.6
== END 2020-05-17 15:09 | disposition home or self-care (01) ==
PROVIDERS: Emergency Provider Nurse Practitioner Family; PCP Nurse Practitioner Family
DX: J01.00 Acute maxillary sinusitis, unspecified (principal); K21.9 Gastro-esophageal reflux disease without esophagitis; I10 Essential (primary) hypertension; F41.9 Anxiety disorder, unspecified; Z95.0 Presence of cardiac pacemaker; Z79.899 Other long term (current) drug therapy
CPT/HCPCS: 96372; 99202; G0463

== ENCOUNTER → 2020-06-09 11:23 | Outpatient (CLI) | payer OTHER, SELFPAY | PROVIDERS: PCP Nurse Practitioner Family; Visit Provider Physician Assistant | DX: Z20.822 Contact with and (suspected) exposure to COVID-19 (principal) | CPT/HCPCS: U0003 ==

== ENCOUNTER → 2020-09-08 15:31 | Outpatient (CLI) | payer OTHER, SELFPAY | PROVIDERS: PCP Nurse Practitioner Family; Visit Provider Physician Assistant | DX: Z20.822 Contact with and (suspected) exposure to COVID-19 (principal) | CPT/HCPCS: U0003 ==

== ENCOUNTER → 2020-09-16 07:05 | Outpatient (CLI) | payer OTHER, SELFPAY ==
--- NOTE | 2020-09-16 07:08 | CT_ITS ---
PROCEDURE: CT HIP RT WO CON CLINICAL HISTORY: hip pain Right-sided hip pain COMPARISON: CT CT ABDOMEN PELVIS W CON from 02/11/2020 CR XR HIP RT 2-3V W/PELVIS from 09/16/2020 TECHNIQUE: Axial images obtained with sagittal and coronal reformats. All CT scans at the facility use one or more dose reduction, viz: automated exposure control, ma/kV adjustment per patient size (including targeted exams where dose is matched to indication, i.e. head), or iterative reconstruction technique. FINDINGS: There is slight decrease in the hip joint space posteriorly. No significant osteophyte formation or osteosclerosis. No fracture or dislocation. No lytic or blastic change. There is a small lipoma within the medial aspect of the vastus lateralis muscle proximally. IMPRESSION: Minimal osteoarthritic change of the right hip. Small lipoma of the vastus lateralis muscle Dictated by: Phi Cadena MD 09/16/2020 16:46 Phi Cadena MD in [place] 09/16/2020 16:46
--- NOTE | 2020-09-16 07:08 | XR_ITS ---
PROCEDURE: XR HIP RT 2-3V W/PELVIS CLINICAL INDICATION: hip pain COMPARISON: CR Acute Abdomen from 04/28/[address] HIP RT WO CON from 09/16/2020 FINDINGS: Minimal osteoarthritic changes with slight decrease in the joint space medially. No fracture or dislocation. No lytic or blastic change. There are degenerative changes in the lower lumbar spine with degenerative disc disease at L4-5 IMPRESSION: Minimal osteoarthritic changes right hip Dictated by: Phi Cadena MD 09/16/2020 13:27 Phi Cadena MD in [place] 09/16/2020 13:27
== END ==
PROVIDERS: PCP Nurse Practitioner Family; Visit Provider Nurse Practitioner Family
DX: M25.551 Pain in right hip (principal)
CPT/HCPCS: 73502; 73700

== ENCOUNTER 2020-11-15 18:59 | Emergency (ER) | payer OTHER, SELFPAY ==
[2020-11-15 19:00] VITALS: BP 121/88; PULSE 91; RESP 19; TEMP 37; O2SAT 99; BMI 33.8
--- NOTE | 2020-11-15 19:33 | HMH.EDUTC ---
[facility] [place] Impression: Allergic rhinitis Qualifiers: Allergic rhinitis trigger: other Allergic rhinitis seasonality: seasonal Qualified Code(s): J30.89 - Other allergic rhinitis Disposition: Home, Self-Care Condition on Discharge: Good Instructions: DI for Allergic Rhinitis Prescriptions: predniSONE [Prednisone 20mg Tab] 20 mg PO BID #10 tab Transmission Status: Pending to [facility] Referrals: Damir Bowling APRN [Primary Care Provider] - Time of Disposition: 19:36 Medical Decision Making - Raji Inquiry Pt receiving controlled substance: No Vital Signs: 11/15/20 19:00 Temperature 98.6 F Temperature Source Oral Pulse Rate [Right Brachial] 91 H Respiratory Rate 19 Blood Pressure [Right Arm] 121/88 Blood Pressure Mean [Right Arm] 99 Blood Pressure Source [Right Arm] Automatic Cuff Blood Pressure Position [Right Arm] Sitting 02 Sat by Pulse Oximetry 99 Oxygen Delivery Method Room Air [facility] [place] - General Chief complaint: Urgent Treatment Center Stated complaint: sinus drainage Time Seen by Provider: 11/15/20 19:33 Mode of Arrival: Ambulatory Source of Information: Patient Limitations: No Limitations Description of Symptoms (Recalled from Triage Doc. by RN): PATIENT C/O SINUS DRAINAGE AND SORE THROAT SINCE TUESDAY HEENT Symptoms (Recalled from RN notes): Yes Resp Symptoms (Recalled from RN notes): No Skin Symptoms (Recalled from RN notes): No MS Symptoms (Recalled from RN notes): No Functional Status (Recalled from RN notes): WNL - History of Present Illness Provider Complaint: 50 yr old female presents for nasal congestion and sore throat since yesterday - Related Data Previous Rx's Medication Instructions Recorded Fluticasone Propionate [Flonase 1 spr NS DAILY 14 Days #1 bottle 05/17/20 50mcg nasal spray 16gm] levothyroxine 25 mcg tablet See Rx Instructions .ROUTE 08/27/20 .COMPLEX #90 tab lisinopril 20 See Rx Instructions .ROUTE 08/27/20 mg-hydrochlorothiazide 12.5 mg .COMPLEX #90 tab tablet pantoprazole 40 mg tablet,delayed See Rx Instructions .ROUTE 08/27/20 release .COMPLEX #90 tab pravastatin 20 mg tablet See Rx Instructions .ROUTE 08/27/20 .COMPLEX #90 tab cetirizine 10 mg tablet See Rx Instructions .ROUTE 09/05/20 .COMPLEX #30 tab kskzzkifppzakoh-owpekjiudloksqm-XE 5 ml PO Q4-6H PRN #118 ml 09/19/20 2 mg-30 mg-10 mg/5 mL oral syrup alprazolam 0.5 mg tablet 0.5 mg PO BID 30 Days #60 tab 09/24/20 benzonatate 100 mg capsule 200 mg PO BID PRN #60 cap 09/24/20 acyclovir 400 mg tablet See Rx Instructions .ROUTE 10/27/20 .COMPLEX #30 tab predniSONE [Prednisone 20mg 20 mg PO BID #10 tab 11/15/20 Tab] Allergies Allergy/AdvReac Type Severity Reaction Status Date / Time adhesive [ADHESIVE] Allergy Unknown Verified 09/24/20 11:09 cyclobenzaprine Allergy Verified 09/24/20 11:09 [From Flexeril] - Worker's Comp Is this a Worker's Comp case?: No H History - Hepatitis A Screen Drug use history?: No High risk sexual behaviors?: No History of sexually transmitted infection?: No Currently employed?: No Childcare worker?: No Do you have indoor plumbing?: Yes Do you have electricity?: Yes Attestation statement:: This patient has been screened for Hepatitis A risk factors. I have reviewed the patient's past medical history: Yes Medical History: Reports:: Anxiety, Gastroesophageal Reflux Disease(GERD), Hypertension, Internal Pacemaker Denies:: Cancer, Diabetes Mellitus Type 1, Diabetes Mellitus Type 2, MRSA, Seizures Other Medical History: Denies: Blood Transfusion Reaction Comment: Maxillary sinus cyst, Hypertrophy, Deviated septum, ethmoid sinusitis Other Surgeries: Yes: Cholecystectomy, Pacemaker, Other Amputation: No Fractures: No Comment: Ear, Nasal BTL, Moles removed. Juliano Alcocer on 02/18/20 - Social History Smoking Status: Never smoker Alcohol Intake: never Substance Use Type: denies use Occupational Status
[2020-11-15 19:49] VITALS: BP 121/88; PULSE 91; RESP 19; TEMP 37; O2SAT 99
== END 2020-11-15 19:53 | disposition home or self-care (01) ==
PROVIDERS: Emergency Provider Nurse Practitioner Family; PCP Nurse Practitioner Family
DX: J30.89 Other allergic rhinitis (principal); J02.9 Acute pharyngitis, unspecified; I10 Essential (primary) hypertension; F41.9 Anxiety disorder, unspecified; K21.9 Gastro-esophageal reflux disease without esophagitis
CPT/HCPCS: 96372; 99202; G0463

== ENCOUNTER → 2020-12-11 12:37 | Outpatient (CLI) | payer OTHER, SELFPAY ==
--- NOTE | 2020-12-11 12:37 | MR_ITS ---
PROCEDURE: MR THORACIC SPINE WO CON CLINICAL INDICATION: Numbness in both legs, T6 sensory level? COMPARISON: CT CT ABDOMEN PELVIS W CON from 02/11/2020 TECHNIQUE: Routine multiplanar multi echo sequences are performed without gadolinium enhancement. FINDINGS: Bone marrow signal is normal. Alignment is normal. Axial images were only obtained from T5 through T10-11, consequently only these levels will be evaluated for neuroforaminal stenosis. There is a tiny left paracentral disc protrusion at T8-9 without any significant canal or neural foraminal stenosis. There is a tiny disc bulge at T10-11 without significant canal or neural foraminal stenosis. On sagittal reconstructions the canal appears unremarkable. The spinal cord appears unremarkable. Visualized intra-abdominal contents appear unremarkable. IMPRESSION: No significant stenosis or spinal cord abnormalities. Dictated by: Krystyna Sherwood MD 12/12/2020 10:39 Krystyna Sherwood MD in [place] 12/12/2020 10:39
--- NOTE | 2020-12-11 12:37 | MR_ITS ---
PROCEDURE: MR LUMBAR SPINE WO CON CLINICAL INDICATION: Lumbosacral spondylosis radiculopathy, L4-5, COMPARISON: CT CT ABDOMEN PELVIS W CON from 02/11/2020 TECHNIQUE: Standard multiplanar multiecho sequences are performed without contrast. 3-D MIP and myelographic images are also rendered and reviewed. FINDINGS: There is severe degenerative disc disease at L4-5 with complete collapse of the L4-5 disc space. The inferior endplate of L4 is fractured and has collapsed on to the superior endplate of L5 which has retrolisthesed to completely obliterate the spinal canal at this level, with severe compression of the cauda equina. There is also severe facet arthropathy at this level with edema in the facet joints. There is no STIR signal abnormality within L4 or L5 at this point to suggest edema - the changes have been present since the CT from 02/11/20 and the adjacent bone is heavily sclerosed at this point. Bone marrow signal is otherwise normal. The remainder of the alignment is otherwise normal. At T11-12, there is no canal or neural foraminal stenosis. At L1-2, there is facet arthropathy and no canal or neural foraminal stenosis. At L2-3, there is facet arthropathy and no significant canal or neural foraminal stenosis. At L3-4, there is mild diffuse disc bulge and moderate facet arthropathy without significant canal or neural foraminal stenosis. At L5-S1, there is facet arthropathy with edema in both facet joints. Visualized intra-abdominal contents appear unremarkable. IMPRESSION: Complete collapse of L4-5 disc space with fracture of inferior endplate of L4 collapsed on to superior endplate of L5 which has retrolisthesed to completely obliterate the spinal canal, producing severe compression of the cauda equina, concerning for cauda equina syndrome. Urgent correlation with clinical symptoms of cauda equina syndrome is recommended, and if present, urgent referral to neurosurgery. Findings were urgently communicated to Dr. Tanya Fernandez's QUAL[employer] ASSURANCE MANAGER Jalen Wise on 12/12/20 at 11:10am. Dictated by: Krystyna Sherwood MD 12/12/2020 11:38 Krystyna Sherwood MD in [place] 12/12/2020 11:38
== END ==
PROVIDERS: PCP Nurse Practitioner Family; Visit Provider Specialist
DX: M54.16 Radiculopathy, lumbar region (principal); G89.29 Other chronic pain; R20.0 Anesthesia of skin
CPT/HCPCS: 72146; 72148; 76376

== ENCOUNTER 2020-12-12 13:32 | Emergency (ER) | payer OTHER, SELFPAY ==
[2020-12-12 13:33] VITALS: BP 126/75; PULSE 71; RESP 16; TEMP 36.8; O2SAT 97; BMI 32.3
--- NOTE | 2020-12-12 13:44 | HMH.EDGENADL ---
ED Disposition Clinical Impression: Cord compression Spinal fracture Qualifiers: Encounter type: subsequent encounter Fracture of vertebra location: lumbar Lumbar vertebra fracture level: L4 Fracture type: closed Fracture morphology: unspecified fracture morphology Fracture healing: with delayed healing Qualified Code(s): S32.049G - Unspecified fracture of fourth lumbar vertebra, subsequent encounter for fracture with delayed healing Disposition: Home, Self-Care Condition on Discharge: Good Additional Instructions: [facility] spinal clinic should call you. If you've not heard from them by Tuesday at noon, give them a call to follow-up. Return to the emergency department immediately for saddle area numbness, loss of bladder or bowel function, worsening severe pain. No heavy lifting. Referrals: Provider,Referral, [Referring] - Time of Disposition: 14:54 - Critical Care Critical Care Time: No Attestation: On 12/12/20, the high probability of a clinically significant, sudden or life threatening deterioration of the following system(s) required my full and direct attention, intervention and personal management. The time I documented below is in addition to time spent performing reported procedures but includes the following listed in this critical care notation. Medical Decision Making - Medical Records Medical records reviewed: Yes: I reviewed the patient's medical records. MR Comment: Reviewed patient's MRI from yesterday - Raji Inquiry Pt receiving controlled substance: No Vital Signs: 12/12/20 13:33 Temperature 98.2 F Temperature Source Oral Pulse Rate [Right Radial] 71 Respiratory Rate 16 Blood Pressure [Right Arm] 126/75 Blood Pressure Mean [Right Arm] 92 Blood Pressure Source [Right Arm] Automatic Cuff Blood Pressure Position [Right Arm] Sitting 02 Sat by Pulse Oximetry 97 Oxygen Delivery Method Room Air Orders (Tests/Meds): ORDERS Category Date Time Status Basic Metabolic Panel Stat Lab 12/12/20 13:44 Ordered CBC [Complete Blood Count Auto Diff] Stat Lab 12/12/20 13:44 Ordered Medical Decision Narrative: 50yo F evaluated upon arrival via EMS. Concern for cauda equina syndrome after receiving phone call from his neurology nurse practitioner. On discussing the case with the patient, she states none of her symptoms are acute. The shortest duration of any of her symptoms is at least 6 months. She denies any recent injury. She denies any saddle paresthesia. She does have some loss of bladder function but relates this only occurs when laughing, coughing, sneezing, attempting to dance. Denies any difficulty with her bowels. On physical exam her muscle strength testing is symmetric left to right. She has minimally decreased sensation on the right versus the left. Case discussed with neurosurgery on-call at [facility]. He states this does not sound like an acute cauda equina syndrome and therefore does not need emergent evaluation. He agrees the patient needs evaluation in spine clinic and states they're happy to see her. Dr. Fernandez's clinic is supposed to call the patient to set up an appointment. All these discussions were relayed to the patient and her friend at bedside. Given strict return to ED parameters and precautions. General Adult HPI - General Stated complaint: back pain Time Seen by Provider: 12/12/20 13:44 Mode of Arrival: EMS - History of Present Illness HPI narrative: 50yo F sent to the emergency department from her job after receiving a phone call from the nurse practitioner in the neurology office. Patient underwent MRI of her spine yesterday and those results were phoned to the nurse practitioner today. MRI showed complete collapse of L4 into 5 with complete obliteration of the spinal canal and concern for cauda equina syndrome. Patient denies any recent fall. She denies any worsening of her symptoms recently. She denies any saddle paresthesia
--- NOTE | 2020-12-12 14:05 | PC.NURSE ---
dr walters speaking with [facility]
--- NOTE | 2020-12-12 14:28 | PC.NURSE ---
JUS LOGAN at discussing POC with pt at this time
[2020-12-12 14:59] VITALS: BP 130/80; PULSE 80; RESP 16; TEMP 36.8; O2SAT 96
== END 2020-12-12 14:59 | disposition home or self-care (01) ==
PROVIDERS: Emergency Provider Family Medicine; PCP Nurse Practitioner Family
DX: M48.56XA Collapsed vertebra, not elsewhere classified, lumbar region, initial encounter for fracture (principal); G83.4 Cauda equina syndrome; I10 Essential (primary) hypertension; K21.9 Gastro-esophageal reflux disease without esophagitis; F41.9 Anxiety disorder, unspecified
CPT/HCPCS: 99281

== ENCOUNTER → 2020-12-24 15:28 | Outpatient (CLI) | payer OTHER, SELFPAY ==
[2020-12-24 16:18] LABS: Basophils # 0.1 K/mm3 (0-0.2); Basophils % 0.7 % (0.1-2.0); Eosinophils # 0.3 K/mm3 (0.0-0.4); Eosinophils % 3.6 % (0.1-12.0); Hematocrit 39.3 % (37.0-47.0); Hemoglobin 13.1 g/dL (12.2-16.2); Lymphocytes # 1.9 K/mm3 (0.7-4.5); Lymphocytes % 24.3 % (10-50); Mean Corpuscular HGB Conc 33.3 g/dL (31.8-35.4); Mean Corpuscular Hemoglobin 30.2 pg (27.0-31.2); Mean Corpuscular Volume 90.7 fl (81-99); Mean Platelet Volume 8.5 fl (7.4-10.4); Monocytes # 0.4 K/mm3 (0.1-1.0); Monocytes % 4.7 % (1.7-9.3); Neutrophils # 5.1 K/mm3 (1.8-7.8); Neutrophils % 66.7 % (37.0-80.0); Platelet Count 387 K/mm3 (142-424); Red Blood Count 4.34 M/mm3 (4.20-5.40); Red Cell Distribution Width 14.4 % (11.5-17.5); White Blood Count 7.6 K/mm3 (4.8-10.8)
[2020-12-24 16:38] LABS: INR 0.94 (0.9-1.1); Prothrombin Time 10.7 seconds (10.1-12.5)
[2020-12-24 16:41] LABS: Chloride 104 mmol/L (98-107); Sodium 138 mmol/L (136-145)
[2020-12-24 16:42] LABS: Potassium 3.6 mmoL/L (3.5-5.1)
[2020-12-24 16:44] LABS: Alanine Aminotransferase 14 U/L (12-78); Albumin/Globulin Ratio 1.4 (1.1-1.8); Alkaline Phosphatase 104 U/L (38-126); Anion Gap 8.6 mEq/L (5-15); Aspartate Amino Transferase 22 U/L (14-36); Bilirubin,Total 0.2 mg/dl (0.2-1.3); Blood Urea Nitrogen 15 mg/dl (7-17); Calcium 9.7 mg/dl (8.4-10.2); Carbon Dioxide 29 mmol/L (22.0-30.0); Cholesterol 176 mg/dl (140-200); Estimated Glomerular Filt Rate 76 ml/min (>60); GFR (African American) 92 ML/MIN (>60); Globulin 2.9 g/dL (1.3-3.2); Glucose 91 mg/dl (74-100); Total Protein,Serum 6.9 g/dl (6.3-8.2); Triglycerides 130 mg/dl (30-150); VLDL Cholesterol 26 mg/dL (0-40)
[2020-12-24 16:45] LABS: HDL Cholesterol 55 mg/dl (40-60)
[2020-12-24 16:56] LABS: Direct LDL Cholesterol 88.07 mg/dL (100-129)
[2020-12-24 17:01] LABS: T4 (Thyroxine) 8.3 ug/dl (5.53-11.0)
[2020-12-24 17:14] LABS: Thyroid Stimulating Hormone 1.43 uIU/mL (0.465-4.68)
[2020-12-24 17:16] LABS: C-Reactive Protein 8.3 mg/L (0-4)
[2020-12-24 17:24] LABS: 25-OH Vitamin D, Total 30.2 ng/mL (30-100)
[2020-12-24 18:11] LABS: Vitamin B12 345 pg/mL (239-931)
[2020-12-24 20:18] LABS: Erythrocyte Sedimentation Rate 27 mm/hr (0-20)
[2020-12-24 21:09] LABS: Chol/HDL Ratio 3.2 (1-3.5)
== END ==
PROVIDERS: Orthopaedic Surgery Orthopaedic Surgery of the Spine; Specialist; Visit Provider Nurse Practitioner Family
DX: R53.83 Other fatigue (principal); E66.9 Obesity, unspecified; R20.0 Anesthesia of skin; Z68.34 Body mass index [BMI] 34.0-34.9, adult
CPT/HCPCS: 36415; 80053; 80061; 82306; 82607; 82746; 84436; 84443; 85025; 85610; 85651; 86140

== ENCOUNTER → 2021-01-30 14:24 | Outpatient (CLI) | payer BC, OTHER, SELFPAY ==
[2021-01-30 14:26] LABS: Adenovirus,PCR Not Detected (NotDetected); Bordetella Pertussis Not Detected (NotDetected); Chlamydophila Pneumoniae, PCR Not Detected (NotDetected); Coronavirus 19, PCR Not Detected (NotDetected); Coronavirus 229E Not Detected (NotDetected); Coronavirus NL63 Not Detected (NotDetected); Coronavirus OC43 Not Detected (NotDetected); Coronovirus HKU1,PCR Not Detected (NotDetected); Human Metapneumovirus Not Detected (NotDetected); Influenza A, PCR Not Detected (NotDetected); Influenza AH1, 2009 Not Detected (NotDetected); Influenza AH1, PCR Not Detected (NotDetected); Influenza AH3,PCR Not Detected (NotDetected); Influenza B, PCR Not Detected (NotDetected); Mycoplasma Pneumoniae, PCR Not Detected (NotDetected); Parainfluenza 1, PCR Not Detected (NotDetected); Parainfluenza 2, PCR Not Detected (NotDetected); Parainfluenza 3, PCR Not Detected (NotDetected); Parainfluenza 4, PCR Not Detected (NotDetected); Rhinovirus/Enterovirus Not Detected (NotDetected)
[2021-01-30 18:47] LABS: Respiratory Syncytial Virus Detected (NotDetected)
== END ==
PROVIDERS: Visit Provider Orthopaedic Surgery Orthopaedic Surgery of the Spine
DX: Z01.812 Encounter for preprocedural laboratory examination (principal); Z11.52 Encounter for screening for COVID-19; B34.1 Enterovirus infection, unspecified
CPT/HCPCS: 87581; 87632; 87798; C9803; U0003; U0005

== ENCOUNTER → 2021-04-06 16:00 | Outpatient (CLI) | payer BC, OTHER, SELFPAY ==
[2021-04-06 14:50] LABS: Amphetamine/Metha Screen,Urine Negative ng/ml (<1000); Barbiturates Screen,Urine Negative ng/ml (<200)
[2021-04-06 14:51] LABS: Benzodiazepines Screen,Urine Positive ng/ml (<200)
[2021-04-06 14:52] LABS: Cannabinoid Screen,Urine Negative ng/ml (<50); Methadone Screen,Urine Negative ng/ml (<300)
[2021-04-06 14:53] LABS: Cocaine Screen,Urine Negative ng/ml (<300)
[2021-04-06 14:54] LABS: Opiate Screen,Urine Negative ng/ml (<300); Phencyclidine Screen,Urine Negative ng/ml (<25)
== END ==
PROVIDERS: Visit Provider Nurse Practitioner Family
DX: F41.9 Anxiety disorder, unspecified (principal)
CPT/HCPCS: 80305

== ENCOUNTER → 2021-05-08 19:52 | Outpatient (CLI) | payer BC, OTHER, SELFPAY ==
[2021-05-08 19:22] LABS: Amphetamine/Metha Screen,Urine Negative ng/ml (<1000); Barbiturates Screen,Urine Negative ng/ml (<200)
[2021-05-08 19:23] LABS: Benzodiazepines Screen,Urine Positive ng/ml (<200)
[2021-05-08 19:26] LABS: Cannabinoid Screen,Urine Negative ng/ml (<50)
[2021-05-08 19:27] LABS: Cocaine Screen,Urine Negative ng/ml (<300); Methadone Screen,Urine Negative ng/ml (<300)
[2021-05-08 19:31] LABS: Opiate Screen,Urine Negative ng/ml (<300); Phencyclidine Screen,Urine Negative ng/ml (<25)
== END ==
PROVIDERS: Visit Provider Nurse Practitioner Family
DX: F41.9 Anxiety disorder, unspecified (principal)
CPT/HCPCS: 80305

== ENCOUNTER 2021-05-17 09:22 | Emergency (ER) | payer BC, OTHER, SELFPAY ==
[2021-05-17 09:30] VITALS: BP 133/87; PULSE 110; RESP 18; TEMP 37.2; O2SAT 100; BMI 35.6
[2021-05-17 09:51] LABS: Strep Scrn Group A (Rapid) Negative (Negative)
--- NOTE | 2021-05-17 10:02 | HMH.EDUTC ---
[facility] [place] Disposition Clinical Impression: Maxillary sinusitis, acute Qualifiers: Recurrence: non-recurrent Qualified Code(s): J01.00 - Acute maxillary sinusitis, unspecified Disposition: Home, Self-Care Condition on Discharge: Good Instructions: DI for Sinusitis Additional Instructions: Start antibiotic patient to take as ordered for a full length of time even if you feel better. Sinus infections do not get better overnight. It may take 2-3 days to notice much improvement so be sure to use conservative measures as discussed for symptoms. Flonase 1 spray each nostril daily to help with nasal congestion, sinus and ear pressure/information Increase fluids Humidifier/vaporizer as needed Tylenol and ibuprofen as needed for fever or pain. If symptoms do not improve or get worse return or be seen in the ER Follow-up with primary care this week Prescriptions: Amoxicillin [Amoxicillin 500mg Tab] 500 mg PO BID 10 Days #20 tab Transmission Status: Pending to [facility] Brompheniramine/Pseudoephed/Dm [Bromfed DM Cough Syrup 5mL] 5 - 10 ml PO Q6HP PRN 5 Days #100 ml PRN Reason: Cough Transmission Status: Pending to [facility] Fluticasone Propionate [Flonase 50mcg nasal spray 16gm] 1 spr NS DAILY #9.9 ml Transmission Status: Pending to [facility] predniSONE [Prednisone 20mg Tab] 20 mg PO BID #10 tab Transmission Status: Pending to [facility] Referrals: Damir Bowling APRN [Primary Care Provider] - Time of Disposition: 10:27 Medical Decision Making - Raji Inquiry Pt receiving controlled substance: No Vital Signs: 05/17/21 09:30 Temperature 98.9 F Temperature Source Oral Pulse Rate [Right Brachial] 110 H Respiratory Rate 18 Blood Pressure [Right Arm] 133/87 Blood Pressure Mean [Right Arm] 102 Blood Pressure Source [Right Arm] Automatic Cuff Blood Pressure Position [Right Arm] Sitting 02 Sat by Pulse Oximetry 100 Oxygen Delivery Method Room Air - Lab Data Lab Results 05/17/21 09:36: Group A Strep Rapid Negative Orders (Tests/Meds): ORDERS Category Date Time Status Strep Screen Confirmation Stat Micro 05/17/21 09:36 Received [facility] [place] HPI - General Chief complaint: Urgent Treatment Center Stated complaint: sore throat, congestion Time Seen by Provider: 05/17/21 10:02 Mode of Arrival: Ambulatory Source of Information: Patient Limitations: No Limitations Description of Symptoms (Recalled from Triage Doc. by RN): PATIENT C/O SORE THROAT X 2 DAYS HEENT Symptoms (Recalled from RN notes): Yes Resp Symptoms (Recalled from RN notes): No Skin Symptoms (Recalled from RN notes): No MS Symptoms (Recalled from RN notes): No Functional Status (Recalled from RN notes): WNL - History of Present Illness Provider Complaint: 51 yr old female presents for sore throat, nasal congestion, sinus pressure and sinus pain. - Related Data Previous Rx's Medication Instructions Recorded escitalopram oxalate 10 mg tablet 10 mg PO QDAY #14 tab 11/24/20 pantoprazole 40 mg tablet,delayed See Rx Instructions .ROUTE 11/24/20 release .COMPLEX #90 tab cetirizine 10 mg tablet See Rx Instructions .ROUTE 03/01/21 .COMPLEX #30 tab fluconazole 150 mg tablet See Rx Instructions .ROUTE 04/02/21 .COMPLEX #2 tab fluticasone propionate 50 See Rx Instructions .ROUTE 04/02/21 mcg/actuation nasal .COMPLEX #16 g spray,suspension loratadine See Rx Instructions .ROUTE 04/02/21 .COMPLEX #30 tab pravastatin 20 mg tablet See Rx Instructions .ROUTE 04/02/21 .COMPLEX #90 tab gabapentin 300 mg capsule 300 mg PO DAILY #30 cap 04/06/21 levothyroxine 25 mcg tablet See Rx Instructions .ROUTE 04/06/21 .COMPLEX #90 tab lisinopril 20 1 tab PO DAILY #30 tab 04/06/21 mg-hydrochlorothiazide 25 mg tablet multivitamin with folic acid 400 See Rx Instructions .ROUTE 04/06/21 mcg tablet .COMPLEX #30 tab alprazolam 0.5 mg tablet 0.5 mg PO BID 30 Days #45 tab 05/08/21 azithromycin 250 mg tab
[2021-05-17 10:22] VITALS: BP 133/87; PULSE 110; RESP 18; TEMP 37.2; O2SAT 100
== END 2021-05-17 10:30 | disposition home or self-care (01) ==
PROVIDERS: Emergency Provider Nurse Practitioner Family; PCP Nurse Practitioner Family
DX: J01.00 Acute maxillary sinusitis, unspecified (principal); I10 Essential (primary) hypertension; K21.9 Gastro-esophageal reflux disease without esophagitis; F41.9 Anxiety disorder, unspecified; Z79.51 Long term (current) use of inhaled steroids; Z79.899 Other long term (current) drug therapy; Z88.8 Allergy status to other drugs, medicaments and biological substances; Z91.048 Other nonmedicinal substance allergy status; Z82.49 Family history of ischemic heart disease and other diseases of the circulatory system; Z83.3 Family history of diabetes mellitus
CPT/HCPCS: 87430; 99213; G0463

== ENCOUNTER → 2021-05-18 10:02 | Outpatient (CLI) | payer BC, OTHER, SELFPAY ==
--- NOTE | 2021-05-18 10:02 | MM_ITS ---
PROCEDURE INFORMATION: Exam: MG Bilateral Screening 3D Mammography Exam date and time: 05/18/2021 10:01 AM Age: 51 years old Clinical indication: Screening examination. No family history of breast cancer. TECHNIQUE: Imaging protocol: Bilateral Screening tomosynthesis and 2D mammography including computer-aided detection (CAD) when performed. COMPARISON: 1. MG MM DIG SCREENING MAMM BI W/CAD 02/04/2020 8:06 AM 2. MG MM DIG SCREENING MAMM BI W/CAD 01/30/2019 11:00 AM 3. MG SCBI MM Dig screening mamm BI w/CAD 03/02/2017 2:37 PM 4. MG DMSB DIG MAMM-SCREEN LUCILA 08/25/2015 10:05 AM FINDINGS: MAMMOGRAPHY: Breast composition: Click The breasts are almost entirely fatty. Mass: None. Architectural distortion: None. Calcifications: No suspicious calcifications. Asymmetric density: None. Skin thickening: None. Axillary adenopathy: None. IMPRESSION: No mammographic evidence of malignancy. Annual screening is recommended unless otherwise clinically indicated. ASSESSMENT: BI-RADS Category 1: Negative
== END ==
PROVIDERS: PCP Nurse Practitioner Family; Visit Provider Nurse Practitioner Family
DX: Z12.31 Encounter for screening mammogram for malignant neoplasm of breast (principal)
CPT/HCPCS: 77063; 77067

== ENCOUNTER → 2021-06-24 16:00 | Outpatient (CLI) | payer BC, OTHER, SELFPAY ==
[2021-06-24 18:21] LABS: Amphetamine/Metha Screen,Urine Negative ng/ml (<1000)
[2021-06-24 18:22] LABS: Barbiturates Screen,Urine Negative ng/ml (<200)
[2021-06-24 18:23] LABS: Benzodiazepines Screen,Urine Positive ng/ml (<200)
[2021-06-24 18:24] LABS: Cannabinoid Screen,Urine Negative ng/ml (<50)
[2021-06-24 18:25] LABS: Cocaine Screen,Urine Negative ng/ml (<300); Methadone Screen,Urine Negative ng/ml (<300)
[2021-06-24 18:26] LABS: Opiate Screen,Urine Negative ng/ml (<300)
[2021-06-24 18:27] LABS: Phencyclidine Screen,Urine Negative ng/ml (<25)
== END ==
PROVIDERS: Visit Provider Nurse Practitioner Family
DX: F41.9 Anxiety disorder, unspecified (principal)
CPT/HCPCS: 80305

== ENCOUNTER → 2022-06-02 13:54 | Outpatient (CLI) | payer BC, OTHER, SELFPAY ==
--- NOTE | 2022-06-02 13:58 | MM_ITS ---
PROCEDURE INFORMATION: Exam: MG Bilateral Screening 3D Mammography Exam date and time: 06/02/2022 2:21 PM Age: 52 years old Clinical indication: Screening mammogram TECHNIQUE: Imaging protocol: Bilateral Screening tomosynthesis and 2D mammography including computer-aided detection (CAD) when performed. COMPARISON: 1. MG MM DIG SCREENING MAMM BI W/CAD 05/18/2021 10:01 AM 2. MG MM DIG SCREENING MAMM BI W/CAD 02/04/2020 8:06 AM 3. MG MM DIG SCREENING MAMM BI W/CAD 01/30/2019 11:00 AM 4. MG SCBI MM Dig screening mamm BI w/CAD 03/02/2017 2:37 PM FINDINGS: MAMMOGRAPHY: Breast composition: The breasts are almost entirely fatty. Mass: None. Architectural distortion: No new or suspicious architectural distortion. Calcifications: No new or suspicious calcifications are present Asymmetric density: No new or suspicious asymmetric density is present Skin thickening: None. Axillary adenopathy: None. IMPRESSION: No mammographic evidence of malignancy. Recommend annual screening mammography unless otherwise clinically indicated. ASSESSMENT: BI-RADS category 1: Negative
== END ==
PROVIDERS: PCP Nurse Practitioner Family; Visit Provider Nurse Practitioner Family
DX: Z12.31 Encounter for screening mammogram for malignant neoplasm of breast (principal)
CPT/HCPCS: 77063; 77067

== ENCOUNTER 2022-11-21 11:43 | Emergency (ER) | payer BC, OTHER, SELFPAY ==
[2022-11-21 11:45] VITALS: BP 148/84; PULSE 66; RESP 18; TEMP 36.6; O2SAT 99; BMI 32.9
[2022-11-21 12:00] VITALS: BP 109/89; PULSE 62; RESP 18; O2SAT 97
--- NOTE | 2022-11-21 12:27 | HMH.EDGENADL ---
Discharge Plan Disposition Patient Disposition: Home, Self-Care Condition: Good Prescriptions Prescriptions: No Action pantoprazole 40 mg tablet,delayed release (DR/EC) See Rx Instructions .Route .COMPLEX Qty: 90 3RF Rx Instructions: TAKE 1 TABLET BY MOUTH ONCE DAILY IN THE MORNING multivitamin with folic acid [Tab-A-Anny] 400 mcg tablet See Rx Instructions .ROUTE .COMPLEX Qty: 30 0RF Dose Instruction: Take 1 tablet by mouth once daily Rx Instructions: Take 1 tablet by mouth once daily levothyroxine [Euthyrox] 25 mcg tablet See Rx Instructions .ROUTE .COMPLEX Qty: 90 0RF Dose Instruction: Take 1 tablet by mouth once daily Rx Instructions: Take 1 tablet by mouth once daily gabapentin 300 mg capsule 300 mg PO HS Qty: 30 0RF Rx Instructions: 1 tab po at bedtime prednisone 20 mg tablet 20 mg PO BID 5 Days Qty: 10 0RF fluticasone propionate 50 mcg/actuation spray,suspension See Rx Instructions .ROUTE .COMPLEX Qty: 16 1RF Dose Instruction: USE 1 SPRAY(S) IN EACH NOSTRIL ONCE DAILY FOR 14 DAYS Rx Instructions: USE 1 SPRAY(S) IN EACH NOSTRIL ONCE DAILY FOR 14 DAYS loratadine See Rx Instructions .ROUTE .COMPLEX Qty: 90 0RF Dose Instruction: Take 1 tablet by mouth once daily Rx Instructions: Take 1 tablet by mouth once daily lisinopril-hydrochlorothiazide 20-25 mg tablet See Rx Instructions .ROUTE .COMPLEX Qty: 90 0RF Dose Instruction: Take 1 tablet by mouth once daily Rx Instructions: Take 1 tablet by mouth once daily cetirizine 10 mg tablet See Rx Instructions .ROUTE .COMPLEX Qty: 30 3RF Dose Instruction: Take 1 tablet by mouth once daily Rx Instructions: Take 1 tablet by mouth once daily alprazolam [Xanax] 0.5 mg tablet 0.5 mg PO BID 30 Days Qty: 45 0RF Rx Instructions: 1/2 tab in am and whole tab in pm fluconazole 150 mg tablet See Rx Instructions .ROUTE .COMPLEX Qty: 2 0RF Dose Instruction: TAKE 1 TABLET BY MOUTH EVERY 72 HOURS Rx Instructions: TAKE 1 TABLET BY MOUTH EVERY 72 HOURS pravastatin 20 mg tablet See Rx Instructions .ROUTE .COMPLEX Qty: 90 0RF Dose Instruction: TAKE 1 TABLET BY MOUTH ONCE DAILY FOR CHOLESTEROL Rx Instructions: TAKE 1 TABLET BY MOUTH ONCE DAILY FOR CHOLESTEROL acyclovir 400 mg tablet See Rx Instructions .ROUTE .COMPLEX Qty: 30 0RF Dose Instruction: TAKE 1 TABLET BY MOUTH 4 TIMES DAILY FOR HERPES WHEN FEVER BLISTER APPEARS Rx Instructions: TAKE 1 TABLET BY MOUTH 4 TIMES DAILY FOR HERPES WHEN FEVER BLISTER APPEARS Referrals Follow up/Referrals: Damir Bowling APRN [Primary Care Provider] - See instructions Activity Restrictions/Add. Instructions Additional Instructions/Restrictions: Please return to the emergency department if you experience any new or worsening symptoms. Clinical Impressions Clinical Impression: Laceration of thumb Qualifiers: Encounter type: initial encounter Damage to nail status: without damage Foreign body presence: without foreign body Laterality: left Qualified Code(s): S61.012A - Laceration without foreign body of left thumb without damage to nail, initial encounter Instructions Patient Instructions: DI for Laceration Repair Discharge ED Provider: Soy Alexis General Adult HPI General Chief complaint: Wound/Laceration Stated complaint: AO 11/21 11:12 laceration to left thumb Time Seen by Provider: 11/21/22 11:56 Mode of Arrival: Ambulatory Source of Information: Patient Limitations: No Limitations Description of Symptoms (Recalled from ER Triage Doc. by RN): PT CUT LEFT THUMB WHILE CUTTING A WATERMELON AT HOME History of Present Illness HPI narrative: The patient presents with a laceration on their right thumb sustained while slicing a watermelon. The patient is right-handed and reports experiencing a tingling sensation in the affected
[2022-11-21 12:30] VITALS: BP 138/84; PULSE 58; RESP 18; O2SAT 99
--- NOTE | 2022-11-21 12:46 | PC.NURSE ---
Dr. Alexis at suturing
[2022-11-21 13:00] VITALS: BP 138/84; PULSE 60; RESP 17; TEMP 36.6; O2SAT 97
== END 2022-11-21 13:00 | disposition home or self-care (01) ==
PROVIDERS: Emergency Provider Emergency Medicine; PCP Nurse Practitioner Family
DX: S61.011A Laceration without foreign body of right thumb without damage to nail, initial encounter (principal); F41.9 Anxiety disorder, unspecified; W26.0XXA Contact with knife, initial encounter
CPT/HCPCS: 12001; 90715; 96372; 99283

== ENCOUNTER 2023-02-25 18:30 | Emergency (ER) | payer OTHER, BC, SELFPAY ==
[2023-02-25 18:32] VITALS: BP 141/94; PULSE 70; RESP 16; TEMP 36.6; O2SAT 100; BMI 34.5
--- NOTE | 2023-02-25 18:52 | XR_ITS ---
PROCEDURE INFORMATION: Exam: XR Lumbosacral Spine Exam date and time: 02/25/2023 7:07 PM Age: 52 years old Clinical indication: Screening exam; Other; Evaluate hardware after injury; Prior surgery; Surgery date: 6+ months; Surgery type: L4-l5 fusion; Additional info: Eval hardware after injury TECHNIQUE: Imaging protocol: Radiologic exam of the lumbosacral spine. Views: 2 or 3 views. COMPARISON: MR LUMBAR SPINE WO CON 12/11/2020 12:56 PM FINDINGS: Bones/joints: Posterior pedicle screws and rods extend from L4-L5. Interbody spacer at L4-L5. Hardware is intact and in good position. 3 mm of grade 1 anterolisthesis of L4 over L5. Mild lumbar spine levoscoliosis. Mild multilevel degenerative changes. No loss of vertebral body height. Soft tissues: Unremarkable. Organs: Status post cholecystectomy. IMPRESSION: Posterior pedicle screws and rods extend from L4-L5. Interbody spacer at L4-L5. Hardware is intact and in good position and there only 3 mm of grade 1 anterolisthesis of L4 over L5.
[2023-02-25] MEDS: LIDOCAINE 5% TRANSDERMAL PATCH 1 EACH TP (19:01)
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
[2023-02-25 20:03] VITALS: BP 120/73; PULSE 68; RESP 16; TEMP 36.7; O2SAT 97
== END 2023-02-25 20:05 | disposition home or self-care (01) ==
PROVIDERS: Emergency Provider Emergency Medicine; PCP Nurse Practitioner Family
DX: M54.50 Low back pain, unspecified (principal); R20.0 Anesthesia of skin; F41.9 Anxiety disorder, unspecified; Y04.0XXA Assault by unarmed brawl or fight, initial encounter; Y99.0 Civilian activity done for income or pay
CPT/HCPCS: 72100; 99283

== ENCOUNTER 2023-08-25 20:33 | Emergency (ER) | payer BC, OTHER, SELFPAY ==
[2023-08-25 20:34] VITALS: BP 157/94; PULSE 86; RESP 18; TEMP 36.8; O2SAT 96; BMI 34.7
--- NOTE | 2023-08-25 20:38 | HMH.EDGENADL ---
Discharge Plan Disposition Patient Disposition: Home, Self-Care Condition: Good Prescriptions Prescriptions: New methocarbamol 750 mg tablet 750 mg PO Q6H PRN (Reason: muscle spasm) Qty: 20 0RF No Action pantoprazole 40 mg tablet,delayed release (DR/EC) See Rx Instructions .Route .COMPLEX Qty: 90 3RF Rx Instructions: TAKE 1 TABLET BY MOUTH ONCE DAILY IN THE MORNING multivitamin with folic acid [Tab-A-Anny] 400 mcg tablet See Rx Instructions .ROUTE .COMPLEX Qty: 30 0RF Dose Instruction: Take 1 tablet by mouth once daily Rx Instructions: Take 1 tablet by mouth once daily levothyroxine [Euthyrox] 25 mcg tablet See Rx Instructions .ROUTE .COMPLEX Qty: 90 0RF Dose Instruction: Take 1 tablet by mouth once daily Rx Instructions: Take 1 tablet by mouth once daily gabapentin 300 mg capsule 300 mg PO HS Qty: 30 0RF Rx Instructions: 1 tab po at bedtime prednisone 20 mg tablet 20 mg PO BID 5 Days Qty: 10 0RF fluticasone propionate 50 mcg/actuation spray,suspension See Rx Instructions .ROUTE .COMPLEX Qty: 16 1RF Dose Instruction: USE 1 SPRAY(S) IN EACH NOSTRIL ONCE DAILY FOR 14 DAYS Rx Instructions: USE 1 SPRAY(S) IN EACH NOSTRIL ONCE DAILY FOR 14 DAYS loratadine See Rx Instructions .ROUTE .COMPLEX Qty: 90 0RF Dose Instruction: Take 1 tablet by mouth once daily Rx Instructions: Take 1 tablet by mouth once daily lisinopril-hydrochlorothiazide 20-25 mg tablet See Rx Instructions .ROUTE .COMPLEX Qty: 90 0RF Dose Instruction: Take 1 tablet by mouth once daily Rx Instructions: Take 1 tablet by mouth once daily cetirizine 10 mg tablet See Rx Instructions .ROUTE .COMPLEX Qty: 30 3RF Dose Instruction: Take 1 tablet by mouth once daily Rx Instructions: Take 1 tablet by mouth once daily alprazolam [Xanax] 0.5 mg tablet 0.5 mg PO BID 30 Days Qty: 45 0RF Rx Instructions: 1/2 tab in am and whole tab in pm fluconazole 150 mg tablet See Rx Instructions .ROUTE .COMPLEX Qty: 2 0RF Dose Instruction: TAKE 1 TABLET BY MOUTH EVERY 72 HOURS Rx Instructions: TAKE 1 TABLET BY MOUTH EVERY 72 HOURS pravastatin 20 mg tablet See Rx Instructions .ROUTE .COMPLEX Qty: 90 0RF Dose Instruction: TAKE 1 TABLET BY MOUTH ONCE DAILY FOR CHOLESTEROL Rx Instructions: TAKE 1 TABLET BY MOUTH ONCE DAILY FOR CHOLESTEROL acyclovir 400 mg tablet See Rx Instructions .ROUTE .COMPLEX Qty: 30 0RF Dose Instruction: TAKE 1 TABLET BY MOUTH 4 TIMES DAILY FOR HERPES WHEN FEVER BLISTER APPEARS Rx Instructions: TAKE 1 TABLET BY MOUTH 4 TIMES DAILY FOR HERPES WHEN FEVER BLISTER APPEARS prednisone 20 mg tablet 40 mg PO DAILY 5 Days Qty: 10 0RF lidocaine 5 % adhesive patch,medicated 1 patch topical DAILY Qty: 15 0RF Rx Instructions: leave on most painful area for up to 12 hrs Referrals Follow up/Referrals: Damir Bowling APRN [Primary Care Provider] - See instructions Activity Restrictions/Add. Instructions Additional Instructions/Restrictions: Follow-up with your PCP within 48 hours to recheck your potassium. Return to ER for any worsening signs or symptoms. Clinical Impressions Clinical Impression: Hypokalemia Low back pain Qualifiers: Chronicity: acute Back pain laterality: left Sciatica presence: without sciatica Qualified Code(s): M54.50 - Low back pain, unspecified Instructions Patient Instructions: DI for Low Back Pain Discharge ED Provider: [facility] <JACKIE Presley - Last Filed: 08/25/23 22:30> General Chief complaint: Back Pain/Injury Stated complaint: left side lower back pain Time Seen by Provider: 08/25/23 20:38 History of Present Illness HPI narrative: Patient presents for acute onset of left lumbar pain. Patient does have a history of previous spinal fusion several years ago but has been doing well. She had acute onset of left lumbar pain while sitting in a chair. She denies problems with bowel or bladder loss of bowel or bladder function hematuria chest pain shortness of breath fever chills hemoptysis hematochezia melena nausea vomit diarrhea. She denies any trauma or strenuous activity precipitating this. Does not radiate anywhere Related Data Previous Rx's Medication Instructions Recorded pantoprazole 40 mg tablet,delayed See Rx Instructions .Route 11/24/20 release .COMPLEX GERD #90 tabs levothyroxine 25 mcg tablet See Rx Instructions .Route 04/06/21 (Euthyrox) .COMPLEX #90 tabs multivitamin with folic acid 400 See Rx Instructions .Route 04/06/21 mcg tablet (Tab-A-Anny) .COMPLEX #30 tabs cetirizine 10 mg tablet See Rx Instructions .Route 07/16/21 .COMPLEX #30 tabs lisinopril 20 See Rx Instructions .Route 07/16/21 mg-hydrochlorothiazide 25 mg tablet .COMPLEX #90 tabs loratadine See Rx Instructions .Route 07/16/21 .COMPLEX #90 tabs fluticasone propionate 50 See Rx Instructions .Route 07/31/21 mcg/actuation nasal .COMPLEX #16 grams spray,suspension gabapentin 300 mg capsule 300 mg PO HS #30 caps 07/31/21 prednisone 20 mg tablet 20 mg PO BID 5 days #10 tabs 07/31/21 alprazolam 0.5 mg tablet (Xanax) 0.5 mg PO BID 30 days #45 tabs 08/03/21 fluconazole 150 mg tablet See Rx Instructions .Route 08/04/21 .COMPLEX #2 tabs pravastatin 20 mg tablet See Rx Instructions .Route 09/18/21 .COMPLEX #90 tabs acyclovir 400 mg tablet See Rx Instructions .Route 01/26/22 .COMPLEX #30 tabs lidocaine 5 % topical patch 1 patch topical DAILY #15 ea 02/25/23 prednisone 20 mg tablet 40 mg (2 x 20 mg) PO DAILY 5 days 02/25/23 #10 tabs methocarbamol 750 mg tablet 750 mg PO Q6H PRN muscle spasm #20 08/25/23 tabs Allergies Allergy/AdvReac Type Severity Reaction Status Date / Time adhesive [ADHESIVE] Allergy Unknown Verified 07/31/21 13:22 cyclobenzaprine Allergy Verified 07/31/21 13:22 [From Flexeril] [facility] <JACKIE Presley - Last Filed: 08/25/23 22:30> [facility] Disclaimer: The information contained in this section may have been updated after the patient was seen, as this information can be updated by other users. Medical History (Updated 08/25/23 @ 22:31 by JACKIE Presley) Anxiety Social History Smoking Status: Never smoker alcohol intake: never substance use type: denies use current occupational status: employed Travel in the last 8 weeks: None household members: spouse housing: house current occupational exposures/hazards: No caffeine: Yes <JACKIE Presley - Last Filed: 08/25/23 22:30> ROS Obtained: Yes Systems reviewed as appropriate & no additional complaints except as documented Physical Exam <JACKIE Presley - Last Filed: 08/25/23 22:30> General General appearance: alert and in no apparent distress Respiratory Respiratory exam: Present normal lung sounds bilaterally Cardiovascular Cardiovascular exam: Present regular rate, normal rhythm and normal heart sounds Abdominal Exam Abdominal exam: Present soft and normal bowel sounds; Absent tenderness, guarding or rebound Extremities Exam Extremities exam: Present normal inspection and full ROM Back Exam Back exam: Present normal inspection, tenderness and CVA tenderness (L); Absent full ROM Neurological Exam Neurological exam: Present alert and oriented X3 Medical Decision Making <JACKIE Presley - Last Filed: 08/25/23 22:30> Raji Inquiry Pt receiving controlled substance: No Vital Signs: 08/25/23 20:34 08/25/23 22:42 Temperature 98.3 F 98.7 F Temperature Source Oral Oral Pulse Rate 70 Pulse Rate [Left Radial] 86 Respiratory Rate 18 18 Blood Pressure 136/89 Blood Pressure [Right Arm] 157/94 H Blood Pressure Mean [Right Arm] 115 Blood Pressure Source Automatic Cuff Blood Pressure Source [Right Arm] Automatic Cuff Blood Pressure Position Sitting Blood Pressure Position [Right Arm] Sitting 02 Sat by Pulse Oximetry 96 Oxygen Delivery Method Room Air Room Air Lab Data Lab results reviewed: Yes I reviewed the patient's lab results. Lab Results 08/25/23 20:58: Urine Color Yellow, Urine Appearance Clear, Urine pH 6.0, Ur Specific [place] >= 1.030, Urine Protein Negative, Urine Glucose (UA) Negative, Urine Ketones Negative, Urine Blood Negative, Urine Nitrate Negative, Urine Bilirubin Negative, Urine Urobilinogen 0.2, Ur Leukocyte Esterase Negative, Urine WBC Occasional, Ur Squamous Epith Cells 3-5, Urine Bacteria Trace 08/25/23 21:11: WBC 5.4, RBC 4.39, Hgb 13.6, Hct 39.9, MCV 90.8, MCH 31.0, MCHC 34.1, RDW 14.3, Plt Count 361, MPV 7.6, Neut % (Auto) 63.4, Lymph % (Auto) 26.1, [place] % (Auto) 6.9, Eos % (Auto) 2.1, Baso % (Auto) 1.6, Neut # (Auto) 3.4, Lymph # (Auto) 1.4, [place] # (Auto) 0.4, Eos # (Auto) 0.1, Baso # (Auto) 0.1, Sodium 142, Potassium 3.0 L, Chloride 103, Carbon Dioxide 31 H, Anion Gap 11.0, BUN 20 H, Creatinine 1.00, Estimated Creat Clear 89, Estimated GFR 58 L, Est GFR ( Amer) 70, Glucose 103 H, Calcium 10.2, Total Bilirubin 0.2, AST 32, ALT 26, Alkaline Phosphatase 99, Total Protein 8.0, Albumin 4.5, Globulin 3.5 H, Albumin/Globulin Ratio 1.3, Lipase 39 08/25/23 21:11 08/25/23 21:11 Orders (Tests/Meds): ED MEDICATIONS Discontinued Medications Generic Name Dose Route Start Last Admin Trade Name Freq PRN Reason Stop Dose Admin Acetaminophen 1,000 mg 08/25/23 20:58 08/25/23 21:03 Acetaminophen 500mg Tab PO 08/25/23 20:59 1,000 mg ONCE ONE Administration Potassium Chloride/Water 100 mls @ 50 mls/hr 08/25/23 22:00 Potassium Chloride 20meq/100ml Ivpb IV 08/26/23 01:59 Q2H ADI Ibuprofen 800 mg 08/25/23 20:58 08/25/23 21:03 Ibuprofen 400 Mg Tablet PO 08/25/23 20:59 Not Given ONCE ONE Methocarbamol 500 mg 08/25/23 20:58 08/25/23 21:03 Methocarbamol 500mg Tablet PO 08/25/23 20:59 500 mg ONCE ONE Administration Potassium Chloride 60 meq 08/25/23 22:00 08/25/23 21:59 Potassium Chloride 20meq Tab PO 08/25/23 22:01 60 meq ONCE ONE Administration ORDERS Category Date Time Status CT abdomen pelvis wo con Stat Cat Scan 08/25/23 20:[address] lumbar spine wo con Stat Cat Scan 08/25/23 20:42 Completed CBC w/Auto Diff [Complete Blood Count Auto Diff] Stat Lab 08/25/23 21:11 Completed CMP [Comprehensive Metabolic Panel] Stat Lab 08/25/23 21:11 Completed Lipase Stat Lab 08/25/23 21:11 Completed UA [Urinalysis and Microscopic] Stat Lab 08/25/23 20:58 Completed Medical Decision Narrative: In summary patient is a 53-year-old female who presents to the emergency department for evaluation of left flank/lumbar pain. Patient is hemodynamically stable upon arrival, afebrile. Zickel exam is remarkable for tenderness to palpation in the left paraspinous musculature of the lumbar spine as well as positive CVA tenderness to percussion. Patient has no focal neurologic deficits C[place] Coma Score is 15.. Differential diagnosis includes muscle spasm versus degenerative disc disease versus pyelonephritis versus kidney stone etc. Initial workup will be conducted with hematologic labs CT scan lumbar spine and abdomen pelvis urinalysis. Initial interventions include Toradol Tylenol Robaxin lidocaine patch. Initial workup reviewed by me shows that her hematologic labs are significant for hypokalemia is being repleted otherwise they are nonactionable and my informal interpretation of her CT imaging shows no acute processes. Upon repeat evaluation patient acceptable diminishment of her discomfort with initial intervention. Given this patient is appropriate for discharge with prescription given for Robaxin and lidocaine patch. <[facility] MD - Last Filed: 08/25/23 23:12> Vital Signs: 08/25/23 20:34 08/25/23 22:42 Temperature 98.3 F 98.7 F Temperature Source Oral Oral Pulse Rate 70 Pulse Rate [Left Radial] 86 Respiratory Rate 18 18 Blood Pressure 136/89 Blood Pressure [Right Arm] 157/94 H Blood Pressure Mean [Right Arm] 115 Blood Pressure Source Automatic Cuff Blood Pressure Source [Right Arm] Automatic Cuff Blood Pressure Position Sitting Blood Pressure Position [Right Arm] Sitting 02 Sat by Pulse Oximetry 96 Oxygen Delivery Method Room Air Room Air Lab Data Lab Results 08/25/23 20:58: Urine Color Yellow, Urine Appearance Clear, Urine pH 6.0, Ur Specific [place] >= 1.030, Urine Protein Negative, Urine Glucose (UA) Negative, Urine Ketones Negative, Urine Blood Negative, Urine Nitrate Negative, Urine Bilirubin Negative, Urine Urobilinogen 0.2, Ur Leukocyte Esterase Negative, Urine WBC Occasional, Ur Squamous Epith Cells 3-5, Urine Bacteria Trace 08/25/23 21:11: WBC 5.4, RBC 4.39, Hgb 13.6, Hct 39.9, MCV 90.8, MCH 31.0, MCHC 34.1, RDW 14.3, Plt Count 361, MPV 7.6, Neut % (Auto) 63.4, Lymph % (Auto) 26.1, [place] % (Auto) 6.9, Eos % (Auto) 2.1, Baso % (Auto) 1.6, Neut # (Auto) 3.4, Lymph # (Auto) 1.4, [place] # (Auto) 0.4, Eos # (Auto) 0.1, Baso # (Auto) 0.1, Sodium 142, Potassium 3.0 L, Chloride 103, Carbon Dioxide 31 H, Anion Gap 11.0, BUN 20 H, Creatinine 1.00, Estimated Creat Clear 89, Estimated GFR 58 L, Est GFR ( Amer) 70, Glucose 103 H, Calcium 10.2, Total Bilirubin 0.2, AST 32, ALT 26, Alkaline Phosphatase 99, Total Protein 8.0, Albumin 4.5, Globulin 3.5 H, Albumin/Globulin Ratio 1.3, Lipase 39 Orders (Tests/Meds): ED MEDICATIONS Discontinued Medications Generic Name Dose Route Start Last Admin Trade Name Freq PRN Reason Stop Dose Admin Acetaminophen 1,000 mg 08/25/23 20:58 08/25/23 21:03 Acetaminophen 500mg Tab PO 08/25/23 20:59 1,000 mg ONCE ONE Administration Potassium Chloride/Water 100 mls @ 50 mls/hr 08/25/23 22:00 Potassium Chloride 20meq/100ml Ivpb IV 08/26/23 01:59 Q2H ADI Ibuprofen 800 mg 08/25/23 20:58 08/25/23 21:03 Ibuprofen 400 Mg Tablet PO 08/25/23 20:59 Not Given ONCE ONE Methocarbamol 500 mg 08/25/23 20:58 08/25/23 21:03 Methocarbamol 500mg Tablet PO 08/25/23 20:59 500 mg ONCE ONE Administration Potassium Chloride 60 meq 08/25/23 22:00 08/25/23 21:59 Potassium Chloride 20meq Tab PO 08/25/23 22:01 60 meq ONCE ONE Administration ORDERS Category Date Time Status CT abdomen pelvis wo con Stat Cat Scan 08/25/23 20:[address] lumbar spine wo con Stat Cat Scan 08/25/23 20:42 Completed CBC w/Auto Diff [Complete Blood Count Auto Diff] Stat Lab 08/25/23 21:11 Completed CMP [Comprehensive Metabolic Panel] Stat Lab 08/25/23 21:11 Completed Lipase Stat Lab 08/25/23 21:11 Completed UA [Urinalysis and Microscopic] Stat Lab 08/25/23 20:58 Completed Medical Decision Narrative: In summary patient is a 53-year-old female who presents to the emergency department for evaluation of left flank/lumbar pain. Patient is hemodynamically stable upon arrival, afebrile. Zickel exam is remarkable for tenderness to palpation in the left paraspinous musculature of the lumbar spine as well as positive CVA tenderness to percussion. Patient has no focal neurologic deficits [place] Coma Score is 15.. Differential diagnosis includes muscle spasm versus degenerative disc disease versus pyelonephritis versus kidney stone etc. Initial workup will be conducted with hematologic labs CT scan lumbar spine and abdomen pelvis urinalysis. Initial interventions include Toradol Tylenol Robaxin lidocaine patch. Initial workup reviewed by me shows that her hematologic labs are significant for hypokalemia is being repleted otherwise they are nonactionable and my informal interpretation of her CT imaging shows no acute processes. Upon repeat evaluation patient acceptable diminishment of her discomfort with initial intervention. Given this patient is appropriate for discharge with prescription given for Robaxin and lidocaine patch. I was consulted by the ONI, and we discussed the complexity of the problems being addressed. I approved the treatment and management plan for this patient?s care in the Emergency Department, thus performing a substantive portion of the medical decision making. Jeffry Bay MD Critical Care <JACKIE Presley - Last Filed: 08/25/23 22:30> Critical Care Time Critical Care Time: No
--- NOTE | 2023-08-25 20:42 | CT_ITS ---
PROCEDURE INFORMATION: Exam: CT Lumbar Spine Without Contrast Exam date and time: 08/25/2023 8:56 PM Age: 53 years old Clinical indication: Low back pain; Additional info: Acute lumbar pain, previous orif left lumbar spine TECHNIQUE: Imaging protocol: Computed tomography of the lumbar spine without contrast. Radiation optimization: All CT scans at this facility use at least one of these dose optimization techniques: automated exposure control; mA and/or kV adjustment per patient size (includes targeted exams where dose is matched to clinical indication); or iterative reconstruction. COMPARISON: 1. MR LUMBAR SPINE WO CON 12/11/2020 12:56 PM 2. CR XR LUMBAR SPINE 2-3V 02/25/2023 7:[address] ABDOMEN PELVIS WO CON 08/25/2023 8:53 PM FINDINGS: Bones/joints: Status post posterior fusion at L4-L5 with loss of intervertebral disc space with intervertebral disc spacer in place. There is slight anterolisthesis of L4-L5. There is a slight levo scoliotic curvature of the spine. Status post laminectomy at L4 and L5. There is mild multilevel degenerative change with loss of intervertebral disc space. No acute fracture or subluxation is seen. Soft tissues: Unremarkable. IMPRESSION: Degenerative disease and postsurgical change without acute injury identified.
--- NOTE | 2023-08-25 20:44 | CT_ITS ---
PROCEDURE INFORMATION: Exam: CT Abdomen And Pelvis Without Contrast Exam date and time: 08/25/2023 8:53 PM Age: 53 years old Clinical indication: Abdominal pain; Acute; Additional info: Acute abd pain TECHNIQUE: Imaging protocol: Computed tomography of the abdomen and pelvis without contrast. Radiation optimization: All CT scans at this facility use at least one of these dose optimization techniques: automated exposure control; mA and/or kV adjustment per patient size (includes targeted exams where dose is matched to clinical indication); or iterative reconstruction. COMPARISON: CT ABDOMEN PELVIS W CON 02/11/2020 7:37 PM FINDINGS: Liver: Normal. No mass. Gallbladder and biliary ducts: Cholecystectomy. No ductal dilation. Pancreas: Normal. No ductal dilation. Spleen: Normal. No splenomegaly. Adrenal glands: Normal. No mass. Kidneys and ureters: Normal. No hydronephrosis. Stomach and bowel: Unremarkable. No obstruction. No mucosal thickening. Appendix: No evidence of appendicitis. Intraperitoneal space: Unremarkable. No free air. No significant fluid collection. Vasculature: Unremarkable. No abdominal aortic aneurysm. Lymph nodes: Unremarkable. No enlarged lymph nodes. Urinary bladder: Unremarkable as visualized. Reproductive: Unremarkable as visualized. Bones/joints: PLIF L4-L5. No acute fracture. Soft tissues: Unremarkable. IMPRESSION: No acute findings.
--- NOTE | 2023-08-25 20:55 | PC.NURSE ---
Pt is CT at this time
[2023-08-25] MEDS: ACETAMINOPHEN 500MG TAB 1000 MG PO (21:03)
[2023-08-25] MEDS: METHOCARBAMOL 500MG TABLET 500 MG PO (21:03)
[2023-08-25 21:13] LABS: Microscopic, Urine URINE MICROSCOPIC (MICROSCOPIC)
[2023-08-25 21:19] LABS: Appearance,Urine CLEAR (Clear); Bilirubin,Urine Negative (Negative); Blood, Urine Negative (Negative); Color,Urine YELLOW (Yellow); Glucose,Urine (UA) Negative (Negative); Ketones,Urine Negative (Negative); Leukocyte Esterase,Urine Negative (Negative); Nitrate,Urine Negative (Negative); Protein,Urine Negative (Negative); Specific Gravity, Urine >= 1.030 (1.005-1.030); Urobilinogen,Urine 0.2 EU/dl (0.2)
[2023-08-25 21:22] LABS: Basophils # 0.1 K/mm3 (0-0.2); Basophils % 1.6 % (0.1-2.0); Eosinophils # 0.1 K/mm3 (0.0-0.4); Eosinophils % 2.1 % (0.1-12.0); Hematocrit 39.9 % (37.0-47.0); Hemoglobin 13.6 g/dL (12.2-16.2); Lymphocytes # 1.4 K/mm3 (0.7-4.5); Lymphocytes % 26.1 % (10-50); Mean Corpuscular HGB Conc 34.1 g/dL (31.8-35.4); Mean Corpuscular Volume 90.8 fl (81-99); Mean Platelet Volume 7.6 fl (7.4-10.4); Monocytes # 0.4 K/mm3 (0.1-1.0); Monocytes % 6.9 % (1.7-9.3); Neutrophils # 3.4 K/mm3 (1.8-7.8); Neutrophils % 63.4 % (37.0-80.0); Platelet Count 361 K/mm3 (142-424); Red Blood Count 4.39 M/mm3 (4.20-5.40); Red Cell Distribution Width 14.3 % (11.5-17.5); White Blood Count 5.4 K/mm3 (4.8-10.8)
[2023-08-25 21:31] LABS: Bacteria,Urine Trace /lpf; WBC,Urine Occasional #/hpf (0-3)
[2023-08-25 21:33] LABS: Chloride 103 mmol/L (98-107); Sodium 142 mmol/L (136-145)
[2023-08-25 21:36] LABS: Alanine Aminotransferase 26 U/L (12-78); Albumin Level 4.5 g/dl (3.5-5.0); Albumin/Globulin Ratio 1.3 (1.1-1.8); Alkaline Phosphatase 99 U/L (38-126); Aspartate Amino Transferase 32 U/L (14-36); Bilirubin,Total 0.2 mg/dl (0.2-1.3); Blood Urea Nitrogen 20 mg/dl (7-17); Calcium 10.2 mg/dl (8.4-10.2); Carbon Dioxide 31 mmol/L (22.0-30.0); Creatinine Clearance Estimated 89 mL/min (50-200); Estimated Glomerular Filt Rate 58 ml/min (>60); GFR (African American) 70 ML/MIN (>60); Globulin 3.5 g/dL (1.3-3.2); Glucose 103 mg/dl (74-100); Lipase 39 U/L (23-300)
[2023-08-25] MEDS: POTASSIUM CHLORIDE 20MEQ TAB 60 MEQ PO (21:59)
[2023-08-25 22:42] VITALS: BP 136/89; PULSE 70; RESP 18; TEMP 37.1; O2SAT 97
== END 2023-08-25 22:46 | disposition home or self-care (01) ==
PROVIDERS: Physician Assistant; Emergency Provider Emergency Medicine; PCP Nurse Practitioner Family
DX: E87.6 Hypokalemia (principal); M54.50 Low back pain, unspecified
CPT/HCPCS: 72131; 74176; 80053; 81001; 83690; 85025; 96365; 96366; 99285

== ENCOUNTER 2023-09-26 09:00 | Outpatient (RCR) | payer BC, OTHER, SELFPAY | END 2023-10-31 15:33 | disposition home or self-care (01) | LOC: PT 09:00 | PROVIDERS: Visit Provider Physician Assistant Medical | DX: M51.36 Other intervertebral disc degeneration, lumbar region (principal) | CPT/HCPCS: 97010; 97014; 97110; 97140; 97163; G0283 ==

== ENCOUNTER 2024-04-29 14:43 | Outpatient (CLI) | payer BC, OTHER, SELFPAY ==
--- NOTE | 2024-04-29 14:54 | XR_ITS ---
PROCEDURE INFORMATION: Exam: XR Right Hand Exam date and time: 04/29/2024 2:55 PM Age: 53 years old Clinical indication: Injury or trauma; Other: Hit on wood; Work related; Blunt trauma (contusions or hematomas); Right; Index finger; Additional info: Pain TECHNIQUE: Imaging protocol: Radiologic exam of the right hand. Views: 3 or more views. COMPARISON: No relevant prior studies available. FINDINGS: Bones/joints: Well corticated defect in the proximal pole of the scaphoid may be due to prior trauma. Degenerative changes in the radiocarpal joint. There is no evidence of acute fracture.There is no evidence of malalignment or dislocation. Soft tissues: Normal. IMPRESSION: There is no evidence of acute fracture.There is no evidence of malalignment or dislocation.
--- NOTE | 2024-04-29 14:54 | XR_ITS ---
PROCEDURE INFORMATION: Exam: XR Lumbosacral Spine Exam date and time: 04/29/2024 2:55 PM Age: 53 years old Clinical indication: Low back pain; Prior surgery; Surgery date: 6+ months; Surgery type: L4 & l5 TECHNIQUE: Imaging protocol: Radiologic exam of the lumbosacral spine. Views: 2 or 3 views. COMPARISON: No relevant prior studies available. FINDINGS: Bones/joints: Parallel spinous rods and pedicular screws L4/L5. There is no evidence of acute fracture.There is no evidence of malalignment or dislocation. Intervertebral disc spaces are narrowed at L3/L4 and L4/L5 consistent with degenerative disc disease. Soft tissues: Unremarkable. Intraperitoneal space: Surgical clips in the right upper quadrant IMPRESSION: 1. There is no evidence of acute fracture.There is no evidence of malalignment or dislocation. 2. Intervertebral disc spaces are narrowed at L3/L4 and L4/L5 consistent with degenerative disc disease.
== END 2024-04-29 23:59 | disposition home or self-care (01) ==
LOC: RAD 14:46
PROVIDERS: PCP Nurse Practitioner Family; Visit Provider Nurse Practitioner Family
DX: M79.641 Pain in right hand (principal); M54.50 Low back pain, unspecified
CPT/HCPCS: 72100; 73130

== ENCOUNTER 2024-07-18 15:42 | Outpatient (CLI) | payer BC, OTHER, SELFPAY ==
--- OUTSIDE RECORDS SUMMARY | 2024-07-18 15:44 | XMS_ITS | Data Portability ---
Author Organization [facility] AD[facility] Address [address] [place] [id number] Care Team Providers Care Extermination Inspector Name Role Phone JAIMIE TALAMANTES Primary Care Provider Assessment No assessment recorded. Plan of Treatment Reminders Order Date Submit Date Provider Last Modified By Organization Details Last Modified Time Details Appointments None recorded. Lab None recorded. Referral None recorded. Procedures None recorded. Surgeries None recorded. Imaging None recorded. Medication Orders Kenalog 10 mg/mL suspension for injection [address] [facility], [address], [phone], 5 08:00:29 bupivacaine HCl 0.5 % (5 mg/mL) injection solution [address] [facility], [address], [phone], 5 08:00:29 Patient TargetsNo targets recorded. Patient InstructionsNo instructions recorded. Reason for Referral None Reported. Medical Equipment None Reported. Medications Name Sig Start Date Stop Date Status Note LastModified by Organization Details LastModified Time amoxicillin 500 mg capsule TAKE 1 CAPSULE BY MOUTH TWICE DAILY FOR 10 DAYS active Not Available Not Available No t Available methocarbamo l 500 mg tablet TAKE 1 TABLET BY MOUTH TWICE DAILY FOR BACK PAIN FOR 3 DAYS active Not Available Not Available N ot Available doxycycline hyclate 100 mg capsule TAKE 1 CAPSULE BY MOUTH TWICE DAILY FOR 7 DAYS active Not Available Not Available No t Available naproxen 375 mg tablet TAKE 1 TABLET BY MOUTH TWICE DAILY FOR 14 DAYS active Not Available Not Available No t Available cetirizine 10 mg tablet TAKE 1 TABLET BY MOUTH ONCE DAILY active Not Available Not Available No t Available fluconazole 150 mg tablet TAKE 1 TABLET BY MOUTH DIRECTED active Not Available Not Available No t Available bupivacaine HCl 0.5 % (5 mg/mL) injection solution Take 5 mg by injection route. 2024 active Not Available Not Available Not Avai lable prednisone 20 mg tablet TAKE 1 TABLET BY MOUTH TWICE DAILY DIRECTED FOR 5 DAYS active Not Available Not Available N ot Available phentermine 37.5 mg tablet TAKE 1 TABLET BY MOUTH ONCE DAILY active Not Available Not Available No t Available acyclovir 400 mg tablet TAKE 1 TABLET BY MOUTH 4 TIMES DAILY FOR HERPES WHEN FEVER BLISTER APPEARS active Not Available Not Available No t Available sulfamethoxa zole 800 mg-trimethop rim 160 mg tablet TAKE 1 TABLET BY MOUTH TWICE DAILY FOR INFECTION FOR 10 DAYS active Not Available Not Available Not Available amoxicillin 500 mg tablet TAKE 1 TABLET BY MOUTH TWICE DAILY FOR 10 DAYS active Not Available Not Available No t Available levothyroxin e 25 mcg tablet TAKE 1 TABLET BY MOUTH ONCE DAILY active Not Available Not Available No t Available methocarbamo l 750 mg tablet TAKE 1 TABLET BY MOUTH EVERY 6 HOURS NEEDED FOR MUSCLE SPASM active Not Available Not Available No t Available Kenalog 10 mg/mL suspension for injection Take 10 mg by injection route. 2024 active Not Available Not Available Not Avai lable pantoprazole 40 mg tablet,delay ed release TAKE 1 TABLET BY MOUTH ONCE DAILY active Not Available Not Available No t Available fluoxetine 10 mg capsule TAKE 1 CAPSULE BY MOUTH ONCE DAILY active Not Available Not Available No t Available gabapentin 300 mg capsule TAKE 1 CAPSULE BY MOUTH THREE TIMES DAILY active Not Available Not Available Not Available lisinopril 20 mg-hydrochlo rothiazide 25 mg tablet TAKE 1 TABLET BY MOUTH ONCE DAILY active Not Available Not Available No t Available simethicone 125 mg chewable tablet CHEW AND SWALLOW 1 TABLET TWICE DAILY NEEDED active Not Available Not Available No t Available pravastatin 20 mg tablet TAKE 1 TABLET BY MOUTH ONCE DAILY active Not Available Not Available No t Available mupirocin 2 % topical ointment APPLY A SMALL AMOUNT TO THE AFFECTED AREA BY TOPICAL ROUTE 3 TIMES A DAY active Not Available Not Available Not Available lisinopril 10 mg-hydrochlo rothiazide 12.5 mg tablet TAKE 1 TABLET BY MOUTH ONCE DAILY active Not Available Not Available No t Available levofloxacin 500 mg tablet TAKE 1 TABLET BY MOUTH EVERY 24 HOURS FOR 5 DAYS active Not Available Not Available N ot Available brompheniram ine-pseudoep hedrine-DM 2 mg-30 mg-10 mg/5 mL oral syrup TAKE 5 TO 10 ML BY MOUTH EVERY 6 HOURS NEEDED FOR COUGH active Not Available Not Available No t Available fluticasone propionate 50 mcg/actuatio n nasal spray,suspen nela USE 1 SPRAY(S) IN EACH NOSTRIL ONCE DAILY FOR 14 DAYS active Not Available Not Available Not Available loratadine 10 mg tablet TAKE 1 TABLET BY MOUTH ONCE DAILY active Not Available Not Available No t Available Ventolin HFA 90 mcg/actuatio n aerosol inhaler INHALE 1 PUFF BY MOUTH EVERY 4 TO 6 HOURS NEEDED active Not Available Not Available No t Available Thera-M 9 mg iron-400 mcg tablet TAKE 1 TABLET BY MOUTH ONCE DAILY active Not Available Not Available No t Available Linzess 145 mcg capsule TAKE 1 CAPSULE BY MOUTH ONCE DAILY active Not Available Not Available No t Available Linzess 72 mcg capsule TAKE 1 CAPSULE BY MOUTH ONCE DAILY active Not Available Not Available No t Available Slow Fe 137 mg (45 mg iron) tablet,exten ded release TAKE 1 TABLET BY MOUTH ONCE DAILY active Not Available Not Available No t Available Zepbound 5 mg/0.5 mL subcutaneous pen injector INJECT 1 SYRINGE SUBCUTANEOU SLY ONCE A WEEK active Not Available Not Available No t Available Zepbound 2.5 mg/0.5 mL subcutaneous pen injector INJECT 1 SYRINGE SUBCUTANEOU SLY ONCE A WEEK active Not Available Not Available No t Available Zepbound 7.5 mg/0.5 mL subcutaneous pen injector INJECT 1 SYRINGE SUBCUTANEOU SLY ONCE A WEEK active Not Available Not Available No t Available Vitals None Recorded Social History None recorded. 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 Family History Relationship Description Onset Age of this Age Resolved Age Notes LastModified by Organization Details LastModified Time Mother Allergy pt. added direct ly (05/14) [email or web address] Not available 05/14/2024 19:35:15 Mother Disorder of endocrine system pt. added direct ly (05/14) [email or web address] Not available 05/14/2024 19:35:26 Mother Hypertensive disorder pt. added direct ly (05/14) [email or web address] Not available 05/14/2024 19:35:41 Mother Gastroesopha geal reflux disease pt. added direct ly (05/14) [email or web address] Not available 05/14/2024 19:35:56 Mother Hypercholest erolemia pt. added direct ly (05/14) [email or web address] Not available 05/14/2024 19:36:12 Mother Obesity pt. added direct ly (05/14) [email or web address] Not available 05/14/2024 19:36:42 Mother Disorder of thyroid gland pt. added direct ly (05/14) [email or web address] Not available 05/14/2024 19:37:09 Father Allergy pt. added direct ly (05/14) [email or web address] Not available 05/14/2024 19:35:15 Father Disorder of endocrine system pt. added direct ly (05/14) [email or web address] Not available 05/14/2024 19:35:26 Father Hypertensive disorder pt. added direct ly (05/14) API-13 Not available 05/14/2024 19:35:41 Father Gastroesopha geal reflux disease pt. added direct ly (05/14) [email or web address] Not available 05/14/2024 19:35:56 Father Hypercholest erolemia pt. added direct ly (05/14) [email or web address]-13 Not available 05/14/2024 19:36:12 Father Obesity pt. added direct ly (05/14) [email or web address]-13 Not available 05/14/2024 19:36:42 Father Disorder of thyroid gland pt. added direct ly (05/14) API-13 Not available 05/14/2024 19:37:09 Brother Allergy pt. added direct ly (05/14) API-13 Not available 05/14/2024 19:35:15 Brother Disorder of endocrine system pt. added direct ly (05/14) API-13 Not available 05/14/2024 19:35:26 Brother Hypertensive disorder pt. added direct ly (05/14) API-13 Not available 05/14/2024 19:35:41 Brother Gastroesopha geal reflux disease pt. added direct ly (05/14) API-13 Not available 05/14/2024 19:35:56 Brother Hypercholest erolemia pt. added direct ly (05/14) API-13 Not available 05/14/2024 19:36:12 Brother Disorder of thyroid gland pt. added direct ly (05/14) API-13 Not available 05/14/2024 19:37:09 Sister Allergy pt. added direct ly (05/14) API-13 Not available 05/14/2024 19:35:15 Sister Disorder of endocrine system pt. added direct ly (05/14) API-13 Not available 05/14/2024 19:35:26 Sister Hypertensive disorder pt. added direct ly (05/14) API-13 Not available 05/14/2024 19:35:41 Sister Gastroesopha geal reflux disease pt. added direct ly (05/14) API-13 Not available 05/14/2024 19:35:56 Sister Hypercholest erolemia pt. added direct ly (05/14) API-13 Not available 05/14/2024 19:36:12 Sister Disorder of thyroid gland pt. added direct ly (05/14) API-13 Not available 05/14/2024 19:37:09 Son Allergy pt. added direct ly (05/14) [email or web address]-13 Not available 05/14/2024 19:35:15 Daughter Allergy pt. added direct ly (05/14) [email or web address] Not available 05/14/2024 19:35:15 Medical History No medical history recorded. Gynecological HistoryNo gynecological history recorded. Obstetrics History GPAL:G 0 P 0 0 0 0 Past Encounters Encounter ID Performer Location Encounter Start Date Encounter Closed Date Diagnosis/Indication Diagnosis SNOMED-CT Code Diagnosis ICD10 Code Diagnosis Note [id number] DO ROSA WILLAMS [address] [phone] 05/16/2024 13:13:16 05/16/2024 14:17:26 Osteoarthritis of metacarpophalangeal joint of finger 604219561 M19.041 Health Concerns Section Related Observation LastModified by Organization Detai ls LastModified Time None Recorded Concern Status LastModified by Organization Details LastModified Time None Recorded Advance Directives Directive None Recorded Payers Insurance Date Sequence Insurance Name Policy Number Policy Harding Covered Member ID Harding Member ID Guarantor Name 05/16/2024 2 [employer] [facility] [place] (MEDICAID HMO) Dorothea Northp [id number] Dorothea Northp 05/16/2024 1 [place] [id number] Dorothea Kwasi [id number] Dorothea Kwasi Notes Date Note Type Note Provider Name and Address Organization Details Recorded Time 05/16/2024 text/html This 54 year old female patient presents in the office today for RIGHT hand index finger problem. She states this has been ongoing for approximately 3 months, since February 2024. She has been to her PCP but was not prescribed anything. She did have x-ray at [facility]. 04/29/2024- XR rt hand- Bones joints well corticated defect in the proximal pole of the scaphoid may be due to prior trauma. Degenerative changes in the radiocarpal joint. There is no evidence of acute fx. There is no evidence of malalignment or dislocation. Soft tissue is normal- [facility] She states the only change is that she started Zepbound 7.5mg/0.5mL injection once weekly and went from 220lb to 140lbs.She states her PCP would not do steroid injection but she would like one. [address], [address], [place], [address], [place] - [facility] - [place] & [place] 05/18/2024 08:06:23 OBGyn Episode No OBEpisode recorded.
--- NOTE | 2024-07-18 15:45 | MM_ITS ---
PROCEDURE INFORMATION: Exam: MG Bilateral Screening 3D Mammography Exam date and time: 07/18/2024 3:50 PM Age: 54 years old Clinical indication: Screening examination TECHNIQUE: Imaging protocol: Bilateral Screening tomosynthesis and 2D mammography including computer-aided detection (CAD) when performed. COMPARISON: 1. MG MM DIG SCREENING MAMM BI W/CAD 06/02/2022 2:21 PM 2. MG MM DIG SCREENING MAMM BI W/CAD 05/18/2021 10:01 AM FINDINGS: MAMMOGRAPHY: Breast composition: The breasts are almost entirely fatty. Mass: None. Architectural distortion: None. Calcifications: No suspicious calcifications. Asymmetric density: None. Skin thickening: None. Axillary adenopathy: None. IMPRESSION: No mammographic evidence of malignancy. Annual screening is recommended unless otherwise clinically indicated. ASSESSMENT: BI-RADS Category 1: Negative.
== END 2024-07-18 23:59 | disposition home or self-care (01) ==
LOC: RAD 15:43
PROVIDERS: PCP Nurse Practitioner Family; Visit Provider Nurse Practitioner Family
DX: Z12.31 Encounter for screening mammogram for malignant neoplasm of breast (principal); R92.313 Mammographic fatty tissue density, bilateral breasts
CPT/HCPCS: 77063; 77067